=== PATIENT | female | born 1975 | race African-American/Black ===

== ENCOUNTER 2019-06-16 14:15 | Inpatient (IN) | payer MEDICAID ==
[~2019-06-16] VITALS: Ht 172.7 cm; Wt 80.7 kg
--- NOTE | 2019-06-16 18:30 | NUR ---
CALLED Lior BREAUX REGARDING NEW ADMIT PATIENT, RECEIVED NEW ORDERS FOR ADMIT AND MEDICATION ALONG WITH NEW CONSULTS. INFORMED OF PATIENT PENDING COVID STATUS. INFORMED THAT PATIENT STATES SHE WAS NEVER SWABBED AT [facility]. Lior BREAUX STATED TO SWAB PATIENT AGAIN FOR COVID AND KEEP ON DROPLET/AIRBORNE PRECAUTION. WILL FOLLOW THROUGH.
--- NOTE | 2019-06-16 18:45 | NUR ---
SPOKE TO HEAD PAPER TESTER SHERITA STATED "WE CANNOT TEST FOR COVID-19 JUST BECAUSE DOCTOR ORDERED IT". STATED WE MUST FOLLOW THROUGH AND RULE OUT INFLUENZA A&B. Addendum: 06/17/19 at 1011 by Sherita Kesslre RN Correction: Stated to Kurtis DUARTE that at this time we need to follow hospital COVID-19 screening tool. Order for COVID-19 can not be placed at this time until screening completed and recommendation made by director clinical operations screening steam box operator. Advised to proceed with respiratory panel and chest xray. Verbalized understanding.
[2019-06-16 18:55] VITALS: BP 130/82
--- NOTE | 2019-06-16 19:00 | NUR ---
Opening Shift Note Assumed care of patient, awake and alert. No S/S of distress/SOB or pain. Instructed on POC and to call for assist PRN, will continue to monitor for changes Q1hr and PRN.
[2019-06-16] MEDS ORDERED: NITROGLYCERIN 0.4 MG SL TAB SL PRN (19:30)
[2019-06-16] MEDS ORDERED: ACETAMINOPHEN 325 MG TAB PO PRN (19:30)
[2019-06-16] MEDS: SODIUM CHLORIDE 0.9% 1,000 ML IV SCH (19:30)
[2019-06-16] MEDS ORDERED: HYDROcodone-ACET 5/325MG TAB PO PRN (19:30)
[2019-06-16] MEDS ORDERED: ONDANSETRON HCL 4 MG/2 ML VIAL IV PRN (19:30)
[2019-06-16] MEDS ORDERED: MORPHINE SULF INJ 2 MG/ML SYRINGE 1ML IV PRN ×2 (19:30)
--- NOTE | 2019-06-16 19:30 | NUR ---
Dr. Brewer at nursing station. Informed of cardio consult and patient complaining of being very hungry d/t not eating anything all day. Per Patient will not have any procedure done soon until COVID 19 is ruled out. Patient can be on a cardiac diet tonight and can be NPO tomorrow at midnight.
--- NOTE | 2019-06-16 19:40 | NUR ---
Re: COVID-19 Spoke with Dave DUARTE and advised of recommendations per on-call COVID-19 screening nut steamer Mil. Per Mil, continue with respiratory panel and chest xray. Keep patient isolated with COVID-19 precautions. Will follow up in am regarding COVID-[address] Rueda.
--- NOTE | 2019-06-16 19:56 | NUR ---
ENDORSED CARE TO GERALD MCMAHAN INFORMED HIM OF PENDING EKG AND PLACEMENT OF TELE MONITOR AND FLUIDS.
[2019-06-16 20:25] LABS: Basophils # (auto) 0.1 10 ^3/uL (0-0.2); Basophils % (auto) 0.6 % (0.0-2.0); Eosinophils # (auto) 0 10 ^3/uL (0-0.8); Eosinophils % (auto) 0.4 % (0.0-7.0); Hematocrit 40.4 % (36.0-46.0); Hemoglobin 13.7 g/dL (12.2-16.2); Lymphocytes # (auto) 1.3 10 ^3/uL (0.4-5.4); Lymphocytes % (auto) 16.4 % (10.0-50.0); Mean Corpuscular Hemoglobin 29.1 pg (28.0-32.0); Mean Corpuscular Volume 85.6 fL (80.0-100.0); Monocytes # (auto) 0.5 10 ^3/uL (0-1.3); Monocytes % (auto) 6.5 % (0.0-12.0); Neutrophils # (auto) 6.2 10 ^3/uL (1.6-8.6); Neutrophils % (auto) 76.1 % (37.0-80.0); Nucleated Red Blood Cells % 0.1 %; Platelet Count (auto) 230 10^3/uL (140-450); Red Blood Cells 4.71 10^6/uL (4.0-5.20); White Blood Cell 8.1 10^3/uL (4.4-10.8)
[2019-06-16 20:45] LABS: Albumin 2.9 g/dL (3.4-5.0); BUN/Creatinine Ratio 11.5; Calcium 8.6 mg/dL (8.5-10.1); Potassium 3.1 mmol/L (3.5-5.1)
[2019-06-16 20:47] LABS: Total Protein 6.9 g/dL (6.4-8.2)
--- NOTE | 2019-06-16 20:54 | NUR ---
Critical lab: Critical trop of 6. called in from lab. RN paged primary MD to make aware.
--- NOTE | 2019-06-16 21:01 | NUR ---
Coagulating Operator paged per Dr. Rueda.
--- NOTE | 2019-06-16 21:01 | NUR ---
Dr. Rueda returned page and informed RN to call chamber walker.
--- NOTE | 2019-06-16 21:29 | NUR ---
Mohit called RN. RN received call from Dr. Rueda. wants to follow up on patient. RN informed MD that patient is stable with no complaints of chest pain at this time. Vitals are stable. MD made aware of patient's trops again. MD also made aware of patient's EKG reading. Per MD, if patient has any dysrhythmia's, transfer to [facility]. RN will continue to monitor patient.
--- NOTE | 2019-06-16 21:33 | NUR ---
Ground Crew Chief re-paged d/t no call back yet. Patient still stable with no complaints of chest pain.
[2019-06-16] MEDS ORDERED: ENOXAPARIN SOD 80 MG/0.8ML SYRINGE SC SCH (22:00)
[2019-06-16] MEDS: METOPROLOL TARTRATE 25 MG TAB PO SCH (22:00)
[2019-06-16] MEDS: ATORVASTATIN 20 MG TAB PO SCH (22:18)
[2019-06-16] MEDS: FAMOTIDINE 20 MG TAB PO SCH (22:18)
--- NOTE | 2019-06-16 22:54 | NUR ---
Rico returned RN phone call: Per Rico, continue to monitor patients troponin's. Orders also received for Echo, EKG AM and ASA 81mg x 1. Orders verified.
[2019-06-16] MEDS ORDERED: ASPirin 81 mg TAB PO ONE (23:00)
--- NOTE | 2019-06-16 23:15 | NUR ---
RN informed by MT patients tele monitor is not properly reading. RN advised to change leads. RN went into patient's room to change leads. Patient still in no distress or discomfort with no chest pain. Patient resting in bed comfortably.
--- NOTE | 2019-06-17 02:30 | NUR ---
IV accidentally pulled out: Patient accidentally pulled out her IV. IV still fully intact. Patient in no distress or discomfort. Patient refused to have another IV placed at this time. RN provided teaching to patient in regards to importance of IV access but patient still refused at this time. Patient informed RN to place IV at 0530.
[2019-06-17] MEDS: POTASSIUM CHL 20MEQ/100ML 100 ML IV SCH ×2 (04:15→09:07)
--- NOTE | 2019-06-17 04:16 | NUR ---
Dr. Rueda pagethomas: Dr. Mohit funez d/t changes in patient rhythm and low potassium. New orders received and verified.
--- NOTE | 2019-06-17 04:43 | NUR ---
IV insertion IV access obtained, via clean sterile technique by inserting 22 gauge catheter after first attempt. IV secured properly. No trauma to site. Patient tolerated well.
[2019-06-17] MEDS: SODIUM CHLORIDE 0.9% 1,000 ML IV SCH ×2 (05:31→14:31)
--- NOTE | 2019-06-17 06:40 | NUR ---
Patient transferred to [facility] with GERALD Hull.
--- NOTE | 2019-06-17 06:50 | NUR ---
PT IN [facility] TRANSFERRED BY GERALD MCMAHAN. VITAL SIGNS BEFORE TRANSFER BP 124/7, HR 70, RR 18, 97 O2, TEMP 98 AND NO PAIN.
--- NOTE | 2019-06-17 07:46 | NUR ---
PT IS REFUSING PHYSICAL ASSESSMENT.
[2019-06-17 08:00] VITALS: BP 118/68
--- NOTE | 2019-06-17 08:00 | NUR ---
INITIAL ASSESSMENT Patient observed resting in bed in negative pressure room. Denies chest pain or shortness of breath at this time. Afebrile. Patient is awake, alert, and oriented. Patient able to reposition self in bed and ambulate to bathroom without difficulty. Sinus rhythm 70's, RR 14, o2:100% on 2 L nasal cannula. Denies cough or chest tightness. Bowel sounds present. Patient denies nausea or vomiting. Skin intact. Bed locked in lowest position, call light within reach. Will continue to monitor.
--- NOTE | 2019-06-17 08:07 | NUR ---
CARDIOLOGY CONSULT called for update. MD aware of labs, CXR, and patient status. MD wanting to perform LHC today. Patient has been NPO since midnight.
--- NOTE | 2019-06-17 08:16 | NUR ---
MD VISIT: CARDIOLOGY at bedside consenting patient for LHC procedure today. All questions and concerns addressed.
--- NOTE | 2019-06-17 08:20 | NUR ---
MD UPDATE:PCP Spoke with regarding rule out for COVID19. stated that as long as patient does not fit criteria for isolation, then patient may be able to be removed. does not believe patient fits criteria for swabbing. Dr. Jones also agree's that patient does not fit criteria for COVID19 at this time. Patient's temperature is 97.7, this morning 98.5 orally. To fever present since admission. Patient denies shortness of breath or cough. Patient denies ever having cough in the past two weeks. Patient denies any history of travel in or out of the [place] in the last 6 months. Patient denies being in contact with any persons who are sick or have tested positive for COVID19. Patient stated she has been under a lot of stress at home, heart rate was elevated the evening prior to admission, then early that morning around 0100 am, patient stated she experienced chest pain that radiated to her back and continue to remain restless until she called 911. Chest pain has subsided since being admitted.
[2019-06-17] MEDS ORDERED: ASPirin-EC 325mg tab PO ONE (08:30)
[2019-06-17] MEDS ORDERED: fentaNYL CITRATE 100 MCG/2 ML VL ONE (08:50)
[2019-06-17] MEDS ORDERED: ANGIOMAX 250 MG VIAL IV ONE (08:50)
[2019-06-17] MEDS ORDERED: LIDOCAINE 2%HCL (LOCAL ANESTH.) INJ 20ML MDV ONE (08:51)
[2019-06-17] MEDS ORDERED: MIDAZOLAM HCL 1MG/1ML-2 ML VIAL ONE (08:51)
[2019-06-17] MEDS ORDERED: SODIUM CHL 0.9% 50 ML ONE (08:51)
[2019-06-17] MEDS ORDERED: IODIXANOL 320MG/ML 100ML BTL IV ONE (08:51)
[2019-06-17] MEDS ORDERED: VERAPAMIL 2.5MG/ML INJ 2ML VIAL IV ONE (08:53)
--- NOTE | 2019-06-17 09:08 | NUR ---
LAB Sales Assistant [employer] at bedside for STAT PT/PTT/INR.
--- NOTE | 2019-06-17 09:10 | NUR ---
PSYCH SPECIALIST Patient taken to laboratory assistant via bed, monitor and portable oxygen by two laboratory assistant RN's. Consents signed and check off list complete. Patient given ASA 325 mg per order prior to laboratory assistant. All jewelry and personal belongings left at bedside.Patient denies SOB or chest pain. Vitals stable.
[2019-06-17] MEDS ORDERED: diphenhdrAMINE HCL 50 MG/1 ML VL ONE (09:40)
[2019-06-17 09:53] LABS: INR 0.99 (0.9-1.15); Partial Thromboplastin Time 29.1 sec (23.64-32.05)
[2019-06-17] MEDS ORDERED: TICAGRELOR 90 MG TAB ONE (09:55)
[2019-06-17] MEDS ORDERED: ASPirin 81 mg TAB PO SCH (10:00)
[2019-06-17] MEDS: METOPROLOL TARTRATE 25 MG TAB PO SCH ×2 (10:00→21:44)
--- NOTE | 2019-06-17 10:20 | NUR ---
PT IS BACK FROM ADMINISTRATIVE OFFICER PT BACK CAME BAY WITH TWO CATH LABS RN ON THE MONITOR. PT DENIES PAIN, HEMODYNAMICALLY STABLE, PLACED BACK ON MONITOR. RESUMING PT CARE. BED IS LOCKED, LOWEST POSITION. INSTRUCTED PT NOT TO MOVE HER LEFT WRIST AND TO KEEP IT STRAIGHT, NOT PUSH OR PULL USING ARM. PT VERBALIZED UNDERSTANDING. MONITORING LEFT WRIST FOR BLEEDING, PULSES AND CAP REFILL, PT DENIES PAIN AT THE SITE, TINGLING OR FEELING OF NUMBNESS. SKIN COLOR WITHIN NORMAL LIMITS. BOTH HANDS ARE COOL TO TOUCH.
[2019-06-17 10:57] LABS: Basophils # (auto) 0 10 ^3/uL (0-0.2); Basophils % (auto) 0.4 % (0.0-2.0); Eosinophils # (auto) 0.1 10 ^3/uL (0-0.8); Eosinophils % (auto) 0.8 % (0.0-7.0); Hematocrit 39.2 % (36.0-46.0); Hemoglobin 12.9 g/dL (12.2-16.2); Lymphocytes # (auto) 1.4 10 ^3/uL (0.4-5.4); Lymphocytes % (auto) 20.4 % (10.0-50.0); Mean Corpuscular Hemoglobin 28.5 pg (28.0-32.0); Mean Corpuscular Hgb Conc. 32.9 g/dL (32.0-36.0); Mean Corpuscular Volume 86.6 fL (80.0-100.0); Monocytes # (auto) 0.5 10 ^3/uL (0-1.3); Neutrophils # (auto) 4.8 10 ^3/uL (1.6-8.6); Neutrophils % (auto) 70.4 % (37.0-80.0); Nucleated Red Blood Cells % 0.3 %; Platelet Count (auto) 238 10^3/uL (140-450); Red Blood Cells 4.53 10^6/uL (4.0-5.20); White Blood Cell 6.8 10^3/uL (4.4-10.8)
[2019-06-17 10:58] LABS: Red Cell Distribution Width 23.8 % (11.8-14.3)
[2019-06-17 11:01] LABS: Albumin 2.8 g/dL (3.4-5.0); Calcium 8.9 mg/dL (8.5-10.1); Potassium 3.3 mmol/L (3.5-5.1)
[2019-06-17 11:04] LABS: BUN/Creatinine Ratio 9.6; Bilirubin, Total 0.9 mg/dL (0.2-1.0); Total Protein 7.5 g/dL (6.4-8.2)
--- NOTE | 2019-06-17 11:25 | NUR ---
REMOVED 2CC OF AIR FROM VASC BAND NO SIGN OF BLEEDING, PULSE IS PALPABLE, HANDS ARE COOL TO TOUCH BILATERALLY, PT DOES NOT REPORT PAIN, TINGLING OR NUMBNESS AT THE INSERTION SITE.
--- NOTE | 2019-06-17 11:37 | NUR ---
US TECH IS AT BEDSIDE
--- NOTE | 2019-06-17 11:50 | NUR ---
REMOVED ANOTHER 2CC FROM VASC BAND NO SIGN OF BLEEDING OR HEMATOMA. PULSE IS PRESENT, COLOR WNL OF THE SURROUNDING SKIN, BOTH HANDS ARE COOL TO TOUCH. Addendum: 06/17/19 at 1152 by ALO CASTRO RN RN WRONG TIME DOCUMENTED, CORRECT TIME 1149
[2019-06-17 12:00] VITALS: BP 100/63
--- NOTE | 2019-06-17 12:00 | NUR ---
REMOVED ANOTHER 2CC FROM VASC BAND NO SIGN OF BLEEDING OR HEMATOMA. PULSE IS PRESENT, COLOR WNL OF THE SURROUNDING SKIN, BOTH HANDS ARE COOL TO TOUCH.
[2019-06-17] MEDS: FAMOTIDINE 20 MG TAB PO SCH ×2 (12:14→21:43)
--- NOTE | 2019-06-17 13:01 | NUR ---
PT HAD BM PT HAD BOWEL MOVEMENT ON 06/17/19 AT 1300
--- NOTE | 2019-06-17 13:06 | NUR ---
REMOVED VASC BAND NO SIGN OF BLEEDING OR HEMATOMA. PULSE IS PRESENT, COLOR WNL OF THE SURROUNDING SKIN, BOTH HANDS ARE COOL TO TOUCH. APPLIED DRY DRESSING (CELSO [employer] TEGADERM) ACCORDING TO HOSPITAL POLICY.
[2019-06-17] MEDS ORDERED: ATOR20TA50 PO (15:01)
[2019-06-17] MEDS ORDERED: TICA90TA PO (15:01)
[2019-06-17] MEDS ORDERED: ASPI81CH43 PO (15:01)
--- NOTE | 2019-06-17 15:20 | NUR ---
MD TAPIA Spoke with , medication list for D/C obtained. okay with patient being downgraded and discharging home tomorrow. Dr.Moqattash Sierra notified of medication list and orders. Patient home pharmacy obtained.
[2019-06-17 15:22] LABS: Alcohol, Urine < 3.0 mg/dL (0-5); Amphetamine Screen, Urine NEGATIVE (NEGATIVE); Barbiturate Scree,Urine NEGATIVE (NEGATIVE); Benzodiazephine Screen, Urine POSITIVE (NEGATIVE); Cannabinoid Screen, Urine POSITIVE (NEGATIVE); Cocaine Screen, Urine NEGATIVE (NEGATIVE); Opiate Scree,Urine NEGATIVE (NEGATIVE); Phencyclidine Screen, Urine NEGATIVE (NEGATIVE)
--- NOTE | 2019-06-17 15:28 | NUR ---
[facility] after giving SBAR report. Pt transferred on tele box monitor 44. Pt tolerated transfer. Left call light near pt, bed in lowest position. Amauri DUARTE aware that pt is in the room. Pt belongings were sent with patient. Addendum: 06/17/19 at 1623 by Nissa Huynh RN WRONG PT
[2019-06-17 16:00] VITALS: BP 108/77
--- NOTE | 2019-06-17 17:33 | NUR ---
RECEIVED REPORT FROM NICOLLE PITTMAN NURSE.
--- NOTE | 2019-06-17 17:40 | NUR ---
[facility] 293B after giving SBAR report. Pt transferred on tele box monitor 73. Pt tolerated transfer by wheelchair. Left call light near pt, bed in lowest position. Isidra DUARTE aware that pt is in the room. Pt belongings were sent with patient.
--- NOTE | 2019-06-17 18:30 | NUR ---
RECEIVED PATIENT TO THE FLOOR AWAKE ALERT AND ORIENTED. INSTRUCTED PATIENT ON THE PLAN OF CARE AND TO CALL NEEDED.
[2019-06-17] MEDS: TICAGRELOR 90 MG TAB PO SCH (21:43)
[2019-06-17] MEDS: ATORVASTATIN 20 MG TAB PO SCH (21:43)
[2019-06-17 22:00] VITALS: BP 119/79
[2019-06-18] MEDS: SODIUM CHLORIDE 0.9% 1,000 ML IV SCH ×2 (01:17→11:30)
--- NOTE | 2019-06-18 02:01 | NUR ---
received report from Jesse RN. upon entering room pt eyes closed, breathing even and unlabored on room air. no s/s distress noted. bed locked, low and 2x rails up. call light in reach. this nurse to round q1hr and prn.
[2019-06-18 05:00] VITALS: BP 104/85
--- NOTE | 2019-06-18 06:21 | NUR ---
Pt requesting "who do i speak to to leave her Db, this environment is not conducive to healing" referring to room mate needs and subsequent entrance to pt room throughout the night. "alarms going off, people barging in and out". this nurse educated pt the risks associated with leaving AMA, to which she replied "i dont care, i need to go". pt then proceeded to get out of bed, and slammed the door. this nurse will continue to monitor situation.
[2019-06-18 06:56] LABS: Basophils # (auto) 0 10 ^3/uL (0-0.2); Basophils % (auto) 0.5 % (0.0-2.0); Eosinophils # (auto) 0.1 10 ^3/uL (0-0.8); Eosinophils % (auto) 1.1 % (0.0-7.0); Hematocrit 38.1 % (36.0-46.0); Hemoglobin 12.9 g/dL (12.2-16.2); Lymphocytes # (auto) 1.2 10 ^3/uL (0.4-5.4); Lymphocytes % (auto) 19.9 % (10.0-50.0); Mean Corpuscular Hemoglobin 29.4 pg (28.0-32.0); Mean Corpuscular Hgb Conc. 33.9 g/dL (32.0-36.0); Mean Corpuscular Volume 86.7 fL (80.0-100.0); Monocytes # (auto) 0.6 10 ^3/uL (0-1.3); Monocytes % (auto) 8.9 % (0.0-12.0); Neutrophils # (auto) 4.3 10 ^3/uL (1.6-8.6); Neutrophils % (auto) 69.6 % (37.0-80.0); Platelet Count (auto) 214 10^3/uL (140-450); Red Blood Cells 4.39 10^6/uL (4.0-5.20); White Blood Cell 6.2 10^3/uL (4.4-10.8)
[2019-06-18 07:06] LABS: Red Cell Distribution Width 23.7 % (11.8-14.3)
[2019-06-18 07:15] LABS: Albumin 2.7 g/dL (3.4-5.0); Calcium 8.8 mg/dL (8.5-10.1); Potassium 3.7 mmol/L (3.5-5.1)
[2019-06-18 07:20] LABS: BUN/Creatinine Ratio 6.2; Bilirubin, Total 0.9 mg/dL (0.2-1.0); Total Protein 6.9 g/dL (6.4-8.2)
[2019-06-18 09:00] VITALS: BP 104/64
[2019-06-18] MEDS: METOPROLOL TARTRATE 25 MG TAB PO SCH (10:00)
[2019-06-18] MEDS ORDERED: ASPirin 81 mg TAB PO SCH (10:00)
[2019-06-18] MEDS: FAMOTIDINE 20 MG TAB PO SCH (10:40)
[2019-06-18] MEDS: TICAGRELOR 90 MG TAB PO SCH (10:44)
[2019-06-18 14:57] VITALS: BP 104/64
--- NOTE | 2019-06-18 15:43 | NUR ---
Discharge instructions given as ordered. Encourage to follow up with PMD as instructed. All questions and concerns addressed. Patient verbalized understanding. Medication reconciliation form completed and copy given to patient. IV removed with catheter intact, pressure dressing applied . Telemetry unit returned to ICU. Patient taken to vehicle via wheelchair with all personal belongings, accompanied by staff member. No distress noted at time of departure.
== END 2019-06-18 16:00 | disposition home or self-care (01) | DRG 174 ==
LOC: EAST 18:53 → TELE-EAST 19:23 → DOU IN ICU 06-17 06:40 → TELE-WESTW 06-17 17:52
PROVIDERS: ADMIT Internal Medicine; ATTEND Internal Medicine
PROC: 027135Z Dilation of Coronary Artery, Two Arteries with Two Drug-eluting Intraluminal Devices, Percutaneous Approach (ICD-10-PCS; principal; 2019-06-17)
PROC: B211YZZ Fluoroscopy of Multiple Coronary Arteries using Other Contrast (ICD-10-PCS; 2019-06-17)
DX: I21.4 Non-ST elevation (NSTEMI) myocardial infarction (principal); F12.90 Cannabis use, unspecified, uncomplicated; I10 Essential (primary) hypertension; F17.210 Nicotine dependence, cigarettes, uncomplicated; I34.0 Nonrheumatic mitral (valve) insufficiency; Z79.899 Other long term (current) drug therapy
CPT/HCPCS: 36415; 71045; 80053; 80307; 80320; 84484; 85025; 85610; 85730; 87081; 87804; 92928; 93306; 93454; 99152; 99153; C1874; G0378; J2250; J3480; Q9967

== ENCOUNTER 2020-10-27 12:31 | Emergency (ER) | payer MEDICAID ==
[~2020-10-27] VITALS: Ht 170.2 cm; Wt 72.6 kg
[~2020-10-27 12:31] MED LIST: ASPI81CH43 PO; ATOR20TA50 PO; TICA90TA PO
[2020-10-27] MEDS ORDERED: SODIUM CHLORIDE 0.9% 1,000 ML IV ONE (13:00)
[2020-10-27 13:04] LABS: Basophils # (auto) 0.1 10 ^3/uL (0-0.2); Basophils % (auto) 0.4 % (0.0-2.0); Eosinophils # (auto) 0 10 ^3/uL (0-0.8); Eosinophils % (auto) 0.2 % (0.0-7.0); Lymphocytes # (auto) 1.2 10 ^3/uL (0.4-5.4); White Blood Cell 17.4 10^3/uL (4.4-10.8)
[2020-10-27 13:11] LABS: Hematocrit 36.1 % (36.0-46.0); Hemoglobin 12.3 g/dL (12.2-16.2); Lymphocytes % (auto) 6.8 % (10.0-50.0); Mean Corpuscular Hgb Conc. 33.9 g/dL (32.0-36.0); Mean Corpuscular Volume 82.6 fL (80.0-100.0); Monocytes # (auto) 0.5 10 ^3/uL (0-1.3); Monocytes % (auto) 2.7 % (0.0-12.0); Neutrophils # (auto) 15.6 10 ^3/uL (1.6-8.6); Neutrophils % (auto) 89.9 % (37.0-80.0); Nucleated Red Blood Cells % 0.2 %; Red Blood Cells 4.38 10^6/uL (4.0-5.20); Red Cell Distribution Width 18.7 % (11.8-14.3)
[2020-10-27 13:19] LABS: Alanine Aminotransferase 14 U/L (13-56); Anion Gap 7 (5-15); Blood Urea Nitrogen 2 mg/dL (7-18); Calcium 8.5 mg/dL (8.5-10.1); Carbon Dioxide 28 mmol/L (21-32); Chloride 100 mmol/L (98-107); Glucose 88 mg/dL (74-106); Magnesium 1.9 mg/dL (1.6-2.6); Potassium 3.2 mmol/L (3.5-5.1); Sodium 135 mmol/L (136-145)
[2020-10-27 13:24] LABS: Alkaline Phosphatase 191 U/L (45-117); Aspartate Aminotransferase 20 U/L (15-37); BUN/Creatinine Ratio 2.6; Bilirubin, Total 0.6 mg/dL (0.2-1.0); GFR African American 107 mL/min; GFR Non-African American 88 mL/min; Total Protein 7.9 g/dL (6.4-8.2)
[2020-10-27 13:27] LABS: Urine Bacteria FEW /hpf (None Seen); Urine Blood Negative /uL (Negative); Urine Specific Gravity 1.006 (1.001-1.035); Urine WBC 2 /hpf (0 - 5)
[2020-10-27 13:53] LABS: Alcohol, Urine < 3.0 mg/dL (0-10); Amphetamine Screen, Urine NEGATIVE (NEGATIVE); Barbiturate Scree,Urine NEGATIVE (NEGATIVE); Benzodiazephine Screen, Urine NEGATIVE (NEGATIVE); Cannabinoid Screen, Urine POSITIVE (NEGATIVE); Cocaine Screen, Urine NEGATIVE (NEGATIVE); Opiate Scree,Urine NEGATIVE (NEGATIVE); Phencyclidine Screen, Urine NEGATIVE (NEGATIVE)
[2020-10-27] MEDS ORDERED: IOHEXOL 350 MG/ML 100ML IJ ONE (15:33)
[2020-10-27 17:00] VITALS: BP 109/83
[2020-10-27] MEDS ORDERED: KETOROLAC TROMETH 30 MG/ML 1ML VIAL IV ONE (17:00)
[2020-10-27] MEDS ORDERED: METOCLOPRAMIDE HCL 5MG/ml INJ 2ml VIAL IV ONE (17:00)
[2020-10-27] MEDS ORDERED: POTASSIUM EFFERVESENT TAB 25 MEQ PO ONE (17:45)
== END 2020-10-27 18:04 | disposition home or self-care (01) ==
LOC: EDBD 12:31 → ER 12:31
DX: I47.1 Supraventricular tachycardia (principal); I25.10 Atherosclerotic heart disease of native coronary artery without angina pectoris; F12.10 Cannabis abuse, uncomplicated; E87.6 Hypokalemia; E43 Unspecified severe protein-calorie malnutrition; Z68.25 Body mass index [BMI] 25.0-25.9, adult; E78.5 Hyperlipidemia, unspecified; F17.210 Nicotine dependence, cigarettes, uncomplicated; Z79.82 Long term (current) use of aspirin; Z79.899 Other long term (current) drug therapy
CPT/HCPCS: 36415; 71045; 71275; 80053; 80307; 81001; 83735; 84443; 84484; 84702; 85025; 85379; 93005; 96361; 96374; 96375; 99285; J1885; J2765; J7030; Q9967

== ENCOUNTER 2025-03-20 12:35 | Inpatient (IN) | payer MEDICAID ==
[~2025-03-20] VITALS: Ht 172.7 cm; Wt 73.2 kg
--- NOTE | 2025-03-20 12:55 | ED.PDOC ---
Back pain HPI HPI Comments 49 y.o female with PMHx of CT, possible bladder cancer, and seizures, presents to the ED via EMS for a chief complaint of total body cramping x 3 days associated with nausea and vomiting x 1 day. Patient reports cramping is severe, states worse to the abdomen site and is accompanied by cold sweats today. Patient denies any fever, diarrhea, constipation, recent contact exposure, SOB or chest pain. EMS reports patient was orthostatic positive on scene and is back to normotensive upon ED arrival. Time Seen by MD: 12:44 Reviewed Notes: Nurses Notes, Physical Therapy Aide Notes, Medications, Allergies Allergies: Coded Allergies: NO KNOWN ALLERGIES (Unverified , 06/16/19) Home Meds Active Scripts Ticagrelor Base (BRILINTA) 90 Mg Tab, 90 MG PO BID, #60 TAB Prov:MARINA PORTER MD 06/17/19 Atorvastatin Calcium (ATORVASTATIN CALCIUM) 20 Mg Tab, 40 MG PO HS, #30 TAB Prov:MARINA PORTER MD 06/17/19 Aspirin (Asa) 81 Mg Ch, 81 MG PO DAILY, #30 TAB.CHEW Prov:MARINA PORTER MD 06/17/19 Information Source: Patient, Emergency Med Personnel Mode of Arrival: EMS Timing: Days (3) Duration: Since onset Severity: Moderate Quality: Sharp Onset: Spontaneous Circumstance: Other History of: None Modifying Factors: Nothing Associated signs and symptoms: Abdominal Pain Past Medical History PAST MEDICAL HISTORY: Cancer, Liver, Seizures Surgical History: PTCA GERIATRIC PHYSICIAN History: No Pertinent GERIATRIC PHYSICIAN History Family History Family History: Family hx of DM Social History Smoker: Cigarettes Alcohol: Denies ETOH Use Drugs: Denies Drug Use Lives In: Home Constitutional: reports: sweats; denies: chills, diaphoresis, fatigue, fever, malaise, weakness, others EENTM: denies: blurred vision, double vision, ear bleeding, ear discharge, ear drainage, ear pain, ear ringing, eye pain, eye redness, hearing loss, mouth pain, mouth swelling, nasal discharge, nose bleeding, nose congestion, nose pain, photophobia, tearing, throat pain, throat swelling, voice changes, others Respiratory: denies: cough, hemoptysis, orthopnea, SOB at rest, shortness of breath, SOB with excertion, stridor, wheezing, others Cardiovascular: denies: chest pain, dizzy spells, diaphoresis, Dyspnea on exertion, edema, irregular heart beat, left arm pain, lightheadedness, palpitations, PND, syncope, others Gastrointestinal: reports: abdominal pain, nausea, vomiting; denies: abdomen distended, blood streaked bowels, constipated, diarrhea, dysphagia, difficulty swallowing, hematemesis, melena, poor appetite, poor fluid intake, rectal ble eding, rectal pain, others Genitourinary: denies: abnormal vagina bleeding, burning, dyspareunia, dysuria, flank pain, frequency, hematuria, incontinence, pain, , vagina discharge, urgency, others Neurological: denies: dizziness, fainting, headache, left sided numbness, left sided weakness, numbness, paresthesia, pre-existing deficit, right sided numbness, right sided weakness, seizure, speech problems, tingling, tremors, weakness, others Musculoskeletal: reports: muscle pain; denies: back pain, gout, joint pain, joint swelling, muscle stiffness, neck pain, others Integumetry: denies: bruises, change in color, change in hair/nails, dryness, laceration, lesions, lumps, rash, wounds, others Allergic/Immunocompromised: denies: Difficulty Healing, Frequent Infections, Hives, Itching, others Hematologic/Lymphatic: denies: anemia, blood clots, easy bleeding, easy bruising, swollen glands, others Endocrine: denies: excessive hunger, excessive sweating, excessive thirst, excessive urination, flushing, intolerance to cold, intolerance to heat, unexplained weight gain, unexplained weight loss, others Psychiatric: denies: anxiety, bipolar disorder, depression, hopeless, panic disorder, schizophrenia, sleepless, suicidal, others All Other Systems: Reviewed and Negative Physical Exam General Appearance: Moderate Distress HEENT: Normal ENT Inspection, Pharynx Normal, TMs Normal Neck: Full Range of Motion, Non-Tender, Normal, Normal Inspection Respiratory: Chest Non-Tender, Lungs Clear, No Accessory Muscle Use, No Respiratory Distress, Normal Breath Sounds Cardiovascular: No Edema, No JVD, No Murmur, No Gallop, Normal Peripheral Pulses, Tachycardia Breast Exam: Deferred Gastrointestinal: No Organomegaly, Non Tender, No Pulsatile Mass, Normal Bowel Sounds, Soft Genitalia: Deferred Pelvic: Deferred Rectal: Deferred Extremities: No calf tenderness, Normal capillary refill, Normal inspection, Normal range of motion, Non-tender, No pedal edema Musculoskeletal : Apperance: Normal Neurologic: Alert, blow moulding machine operator II-XII nml as Tested, No Motor Deficits, Normal Affect, Normal Mood, No Sensory Deficits Cerebellar Function: NOT DONE Reflexes: NOT DONE Skin: Normal Color Peripheral Pulses: 3+ Radial (R), 3+ Radial (L) Lymphatic: No Adenopathy Was a procedure done? Was a procedure done?: No Back Pain Differential Dx Differential Diagnosis: Cholelithiasis, Cholangitis, DJD, Musculoskeletal Pain, Pancreatits, Strain X-Ray, Labs, Meds, VS Vital Signs Date Time Temp Pulse Resp B/P (MAP) Pulse Ox O2 Delivery O2 Flow Rate FiO2 03/20/25 12:54 99.0 133 18 126/72 94 99.0 Patient alert. Complaining of abdominal pain. She also has cough. Answering questions. Mild fever. Tachycardia. Saturation on the low side. EKG reviewed does show sinus tachycardia. No leg swelling. Continue monitoring. Time of 1ST Reevaluation: 12:52 Reevaluation 1ST: Unchanged Patient Education/Counseling: Diagnosis, Treatment, Prognosis Family Education/Counseling: No Family Present SEPSIS Sepsis Screen Physician Orders Complete Blood Count (03/20/25 12:55) Urinalysis (03/20/25 12:55) Ct Ab Pel Wo Con-No Oral Or Iv (03/20/25 12:55) Chest Portable (03/20/25 12:55) Basic Metabolic Panel (03/20/25 12:55) Vital Signs Date Time Temp Pulse Resp B/P (MAP) Pulse Ox O2 Delivery O2 Flow Rate FiO2 03/20/25 12:54 99.0 133 18 126/72 94 99.0 Departure 1 Departure Time of Disposition: 13:16 Impression: Primary Impression: Acute abdominal pain Disposition: 09 ADMITTED INPATIENT Admit to: Med Surg Condition: Guarded Critical Care Note Critical Care Time?: Yes (90 min-critical care time only) Stability Stability form required: No I personally scribed for GELY DE LA CRUZ MD ([email or web address]) on 03/20/25 at 12:55. Electronically submitted by Alissa De La Torre ([facility]). I personally scribed for GELY DE LA CRUZ MD ([email or web address]) on 03/20/25 at 12:56. Electronically submitted by Alissa De La Torre ([facility]). GELY DE LA CRUZ MD Mar 20, 2025 12:55
[2025-03-20 13:10] VITALS: PULSE 140; RESP 16; O2SAT 96
[2025-03-20] MEDS: SODIUM CHLORIDE 0.9% 1,000 ML IV ONE ×2 (13:30→14:59)
--- NOTE | 2025-03-20 13:46 | DVH ---
CT abdomen and pelvis without contrast INDICATION: diffusepain TECHNIQUE: Serial axial images were performed through the abdomen and pelvis and then reformatted in the sagittal and coronal plane. All CT scans at this medical facility are performed using dose modulation techniques as appropriate to a performed exam including the following: Automated exposure control was utilized; adjustment of the MA and/or KvP according to patient size; and use of iterative reconstruction technique. FINDINGS: Liver and spleen are normal in size without focal mass. No renal masses, stones or hydronephrosis. No masses or enlargement of the adrenal glands or pancreas. No biliary dilatation. No gallstones. No distention of bowel loops to suggest mechanical obstruction of bowel. The appendix is normal in appearance. No free fluid. Within the pelvis, bladder is smooth walled without stones. Calcified fibroids within the uterus. IMPRESSION: Study limited by lack of IV and oral contrast No definite acute pathology is seen. Incidental note made of multiple calcified uterine fibroids Computed Tomographic Radiation Dosimetry Report: Total CTDI vol = 7.7mGy Total DLP = 386.3mGy-cm Low dose protocols were performed.
--- NOTE | 2025-03-20 13:57 | DVH ---
CHEST RADIOGRAPH INDICATION: cough TECHNIQUE: Single frontal view of the chest was obtained COMPARISON: CT ANGIO CHEST CONTRAST on DOS: 10/27/20, CHEST PORTABLE on DOS: 10/27/20 FINDINGS: Lines and Tubes: None Lungs: Clear Pleura: No effusion. No pneumothorax. Cardiomediastinal contours: Unremarkable Bones: Unremarkable IMPRESSION: 1. No acute disease.
[2025-03-20 14:08] LABS: Hematocrit 35.8 % (36.0-46.0); Hemoglobin 12.2 g/dL (12.2-16.2); Mean Corpuscular Hemoglobin 29.4 pg (28.0-32.0); Mean Corpuscular Volume 86.3 fL (80.0-100.0); Nucleated Red Blood Cells % 0.0 %
[2025-03-20 14:15] LABS: Potassium 3.5 mmol/L (3.5-5.1)
[2025-03-20 14:16] LABS: Anion Gap 12 (5-15); Carbon Dioxide 20 mmol/L (20-31)
[2025-03-20 14:17] LABS: Calcium 9.2 mg/dL (8.7-10.4); Chloride 94 mmol/L (98-107); Sodium 126 mmol/L (136-145)
[2025-03-20 14:22] LABS: BUN/Creatinine Ratio 13.3 (10.0-20.0); Blood Urea Nitrogen 11 mg/dL (9-23)
[2025-03-20 14:25] LABS: Glucose 128 mg/dL (74-106)
[2025-03-20] MEDS ORDERED: ACETAMINOPHEN 325 MG TAB PO PRN (16:45)
[2025-03-20] MEDS ORDERED: ONDANSETRON HCL 4 MG/2 ML VIAL IV PRN ×2 (16:45)
--- NOTE | 2025-03-20 16:47 | DVHHP2 ---
History of Present Illness History of Present Illness 49 y.o female with PMHx of [place], possible bladder cancer, and seizures, presents to the ED via EMS for a chief complaint of total body cramping x 3 days associated with nausea and vomiting x 1 day. Patient reports cramping is severe, states worse to the abdomen site and is accompanied by cold sweats today. No sick contacts. No fevers chills. Patient denies any fever, diarrhea, constipation, recent contact exposure, SOB or chest pain. EMS reports patient was orthostatic positive on scene and is back to normotensive upon ED arrival. Review of Systems Review of Systems See HPI Allergies: Coded Allergies: NO KNOWN ALLERGIES (Unverified , 06/16/19) Exam Vital Signs Vital Signs Date Time Temp Pulse Resp B/P (MAP) Pulse Ox O2 Delivery O2 Flow Rate FiO2 03/20/25 13:10 140 16 96 Room Air* 0 21 03/20/25 12:54 99.0 126/72 99.0 Exam GEN: Healthy appearing, well-developed, NAD. HEENT: NC/AT; dry mucous membranes CV: RRR, no m/r/g. LUNGS: CTAB, no w/r/c. ABD: Epigastrium tender to palpation EXT: skin Warm, well perfused. no rashes. No clubbing, cyanosis, or edema. NEURO: Ambulating with no limitations. No focal deficits. Labs/Xrays Labs Test 03/20/25 13:38 Range/Units White Blood Count 14.7 H 4.4-10.8 10^3/uL Red Blood Count 4.14 4.0-5.20 10^6/uL Hemoglobin 12.2 12.2-16.2 g/dL Hematocrit 35.8 L 36.0-46.0 % Mean Corpuscular Volume 86.3 80.0-100.0 fL Mean Corpuscular Hemoglobin 29.4 28.0-32.0 pg Mean Corpuscular Hemoglobin Concent 34.0 32.0-36.0 g/dL Red Cell Distribution Width 15.8 H 11.8-14.3 % Platelet Count 210 140-450 10^3/uL Mean Platelet Volume 9.4 6.9-10.8 fL Neutrophils (%) (Auto) 94.7 H 37.0-80.0 % Lymphocytes (%) (Auto) 1.6 L 10.0-50.0 % Monocytes (%) (Auto) 3.4 0.0-12.0 % Eosinophils (%) (Auto) 0.0 0.0-7.0 % Basophils (%) (Auto) 0.3 0.0-2.0 % Neutrophils # (Auto) 13.9 H 1.6-8.6 10 ^3/uL Lymphocytes # (Auto) 0.2 L 0.4-5.4 10 ^3/uL Monocytes # (Auto) 0.5 0-1.3 10 ^3/uL Eosinophils # (Auto) 0 0-0.8 10 ^3/uL Basophils # (Auto) 0 0-0.2 10 ^3/uL Nucleated Red Blood Cells 0.0 % Sodium Level 126 L 136-145 mmol/L Potassium Level 3.5 3.5-5.1 mmol/L Chloride Level 94 L 98-107 mmol/L Carbon Dioxide Level 20 20-31 mmol/L Anion Gap 12 5-15 Blood Urea Nitrogen 11 9-23 mg/dL Creatinine 0.83 0.550-1.02 mg/dL Glomerular Filtration Rate Calc 87 >90 mL/min BUN/Creatinine Ratio 13.3 10.0-20.0 Serum Glucose 128 H 74-106 mg/dL Lactic Acid Level 1.7 0.4-2.0 mmol/L Calcium Level 9.2 8.7-10.4 mg/dL SEPSIS Sepsis Screen Date sepsis recognized/suspect: Mar 20, 2025 Time Sepsis recognized/suspect: 1310 Recent Procedure: No On Antibiotic Therapy: No Respiratory Rate >20: No Heart Rate >90: Yes Temp<36 C (96.8 F) or >38.3 C: No SBP <90 or MAP <65 mmHG: No New Acute Mental Status Change: No Is the patient on CPAP, BIPAP,: No Physician Orders Urinalysis (03/20/25 12:55) Ct Ab Pel Wo Con-No Oral Or Iv (03/20/25 12:55) Chest Portable (03/20/25 12:55) Blood Culture (03/20/25 13:17) Sodium Chloride 0.9% (03/20/25 13:30) Vital Signs Date Time Temp Pulse Resp B/P (MAP) Pulse Ox O2 Delivery O2 Flow Rate FiO2 03/20/25 13:10 140 16 96 Room Air* 0 21 03/20/25 12:54 99.0 133 18 126/72 94 99.0 Laboratory Tests Test 03/20/25 13:38 Lactic Acid Level 1.7 mmol/L (0.4-2.0) White Blood Count 14.7 10^3/uL (4.4-10.8) H Medications Medications Dose Ordered Sig/Riley Route Start Time Stop Time Status Last Admin Dose Admin Ceftriaxone Sodium 50 ml @ 100 mls/hr ONCE ONCE IV 03/20/25 13:30 03/20/25 13:59 DC 03/20/25 15:13 100 MLS/HR Metronidazole 100 ml @ 100 mls/hr ONCE ONCE IV 03/20/25 13:30 03/20/25 14:29 DC 03/20/25 15:58 100 MLS/HR Sodium Chloride 1,000 ml @ 150 mls/hr Q6H40M ONCE IV 03/20/25 13:30 03/20/25 20:09 03/20/25 13:30 150 MLS/HR Sodium Chloride 1,000 ml @ 1,000 mls/hr Q1H ONCE IV 03/20/25 13:30 03/20/25 14:29 DC 03/20/25 14:59 1,000 MLS/HR Assessment/Plan Assessment/Plan 03/20: Patient presented for total body cramps after 1 day of severe nausea and vomiting. She has cold sweats, denies fevers. She also has hyponatremia , likely hypovolemic. given bolus and ctx/flagyl in ER. we will continue this for admission. will need maintenance fluids. Diagnosis: Gastroenteritis, infectious etiology likely Hyponatremia, hypovolemic hypoosmolar likely CKD likely HFpEF possible Bladder cancer current, ongoing workup/treatment History of NH History of seizures? Plan: IV antibiotics Maintenance was Continue home medications Oxygen SpO2 goal more than 90 Prn pain meds Full liquid diet, advance as tolerated Prn Zofran for antiemetic Med surge Full code Plan discussed with: Patient Date of Service: Mar 20, 2025 Billing Provider: PAUL LAIRD MD Common Visit Codes: [id number] INP/OBS CARE (HIGH) Secondary Visit Codes: [id number] CARE PLAN 30 MINUTES PAUL LAIRD MD Mar 20, 2025 16:47
[2025-03-20] MEDS: SODIUM CHLORIDE 0.9% 1,000 ML IV SCH (17:00)
[2025-03-20 19:55] LABS: Urine Protein, UAD 2+ (Negative)
[2025-03-20] MEDS: MORPHINE SULFATE 4 MG/ML SYR/VIAL IV PRN (21:51)
[2025-03-20 22:10] VITALS: BP 125/75; PULSE 126; RESP 19; TEMP 98.4; O2SAT 95
[2025-03-20 22:53] VITALS: BP 125/75; PULSE 126; PULSE 95; RESP 18; TEMP 98.4; O2SAT 95; O2SAT 97
[2025-03-20] MEDS: HYDROcodone-ACET 5/325MG TAB PO PRN (23:36)
[2025-03-21] VITALS (9 sets, daily range): BP systolic 96–159; BP diastolic 59–110; PULSE 87–131; RESP 16–19; TEMP 97–99; O2SAT 93–98
[2025-03-21] MEDS: dilTIAZem 120MG ER CAP PO ONE ×2 (03:27→04:41)
[2025-03-21 08:00] LABS: Hematocrit 32.2 % (36.0-46.0); Hemoglobin 10.8 g/dL (12.2-16.2); Mean Corpuscular Hemoglobin 29.2 pg (28.0-32.0); Mean Corpuscular Volume 86.7 fL (80.0-100.0); Nucleated Red Blood Cells % 0.0 %
[2025-03-21 08:18] LABS: Albumin 3.8 g/dL (3.2-4.8); Anion Gap 9 (5-15); BUN/Creatinine Ratio 11.8 (10.0-20.0); Bilirubin, Total 1.1 mg/dL (0.2-1.0); Calcium 8.7 mg/dL (8.7-10.4); Carbon Dioxide 26 mmol/L (20-31); Glucose 102 mg/dL (74-106); Potassium 3.7 mmol/L (3.5-5.1); Total Protein 7.1 g/dL (5.7-8.2)
[2025-03-21] MEDS ORDERED: DILT-29 PO (08:20)
[2025-03-21 08:30] LABS: Alanine Aminotransferase 55 U/L (7-40); Alkaline Phosphatase 169 U/L (46-116); Blood Urea Nitrogen 9 mg/dL (9-23); Chloride 94 mmol/L (98-107); Sodium 129 mmol/L (136-145)
[2025-03-21] MEDS: ENOXAPARIN SOD 40 MG/0.4 ML SYRINGE SC SCH (08:40)
[2025-03-21] MEDS ORDERED: ADENOSINE 6 MG/2 ML INJ IV STA ×2 (10:46)
[2025-03-21] MEDS: LACTATED RINGER'S 1,000 ML IV ONE (11:00)
--- NOTE | 2025-03-21 11:24 | DVHPN2 ---
Reviewed: H&P Changes from previous H/P or p: No Changes General: Per HPI Objective Vitals Vital Signs Date Time Temp Pulse Resp B/P (MAP) Pulse Ox O2 Delivery O2 Flow Rate FiO2 03/21/25 08:58 98.2 131 18 159/110 (126) 93 98.2 03/21/25 07:59 Room Air* 0 21 Intake/Output Intake and Output 03/21/25 07:00 Intake Total 930 ml Balance 930 ml Intake Oral 300 ml IV Total 630 ml # Voids 5 Exam GEN: Healthy appearing, well-developed, NAD. HEENT: NC/AT; MMM. CV: RRR, no m/r/g. LUNGS: CTAB, no w/r/c. ABD: Soft, NT/ND, NBS, no masses or organomegaly. EXT: skin Warm, well perfused. no rashes. No clubbing, cyanosis, or edema. NEURO: Ambulating with no limitations. No focal deficits. Medications Current Medications Medications Dose Ordered Sig/Riley Route Start Time Stop Time Status Last Admin Dose Admin Sodium Chloride 1,000 ml @ 60 mls/hr [id number] IV 03/20/25 16:45 03/21/25 08:40 60 MLS/HR Acetaminophen/ Hydrocodone Bitart 1 tab Q4HP PRN PO 03/20/25 16:45 03/20/25 23:36 1 TAB Ondansetron HCl 4 mg Q4HP PRN IV 03/20/25 16:45 Enoxaparin Sodium 40 mg DAILY SC 03/21/25 10:00 03/21/25 08:40 40 MG Acetaminophen 650 mg Q6HP PRN PO 03/20/25 16:45 Morphine Sulfate 2 mg Q4HPRN PRN IV 03/20/25 17:00 03/21/25 08:41 2 MG Ceftriaxone Sodium 50 ml @ 100 mls/hr DAILY@09 IV 03/21/25 09:00 03/21/25 08:39 100 MLS/HR Metronidazole 100 ml @ 100 mls/hr Q8HR IV 03/20/25 22:00 03/21/25 05:48 100 MLS/HR Metoprolol Tartrate 25 mg BID PO 03/21/25 22:00 Diltiazem HCl 120 mg DAILY PO 03/22/25 10:00 UNV Laboratory Results Laboratory Tests 03/21/25 07:50 Chemistry Test 03/20/25 13:38 03/21/25 07:50 Calcium Level 9.2 mg/dL (8.7-10.4) 8.7 mg/dL (8.7-10.4) Albumin 3.8 g/dL (3.2-4.8) Magnesium Level Pending Phosphorus Level Pending Total Protein 7.1 g/dL (5.7-8.2) LFT Test 03/21/25 07:50 Alanine Aminotransferase (ALT) 55 U/L (7-40) H Alkaline Phosphatase 169 U/L (46-116) H Aspartate Amino Transferase (AST) 141 U/L (13-40) H Total Bilirubin 1.1 mg/dL (0.2-1.0) H Urinalysis Test 03/20/25 18:55 Urine Color Yellow (Yellow) Urine Clarity Clear (Clear) Urine pH 6.0 (5.0-9.0) Urine Specific [place] 1.014 (1.001-1.035) Urine Protein 2+ (Negative) H Urine Ketones Trace (Negative) Urine Blood 1+ /uL (Negative) H Urine Nitrite Negative (Negative) Urine Bilirubin Negative (Negative) Urine Urobilinogen 3 mg/dL (Negative) H Urine Leukocyte Esterase Negative /uL (Negative) Urine RBC 1 /hpf (0 - 4) Urine Microscopic WBC 2 /HPF (0-5) Urine Squamous Epithelial Cells Few /hpf (<5) Urine Bacteria Few /hpf (None Seen) H Urine Mucus Few (None Seen) Urine Glucose Normal mg/dL (Normal) Microbiology Microbiology Date/Time Source Procedure Growth Status 03/20/25 13:38 Blood Blood Culture - Preliminary Resulted Labs and/or images reviewed: Labs reviewed by me, Image(s) reviewed by me Assessment/Plan Assessment/Plan 49 y.o female with PMHx of [place], possible bladder cancer, and seizures, presents to the ED via EMS for a chief complaint of total body cramping x 3 days associated with nausea and vomiting x 1 day. Patient reports cramping is severe, states worse to the abdomen site and is accompanied by cold sweats today. No sick contacts. No fevers chills. Patient denies any fever, diarrhea, constipation, recent contact exposure, SOB or chest pain. EMS reports patient was orthostatic positive on scene and is back to normotensive upon ED arrival. 03/20: Patient presented for total body cramps after 1 day of severe nausea and vomiting. She has cold sweats, denies fevers. She also has hyponatremia , likely hypovolemic. given bolus and ctx/flagyl in ER. we will continue this for admission. will need maintenance fluids. 03/21: Had SVT overnight was given diltiazem ER 122 I's, her home doses diltiazem ER 120 once daily. She has gotten to SVT again this morning. She can versus herself to sinus tachycardia 100s. Giving LR 500 bolus, Gram-positive cause of cocci on blood blood culture, we will be blood cultures keep antibiotics ceftriaxone Flagyl. We will get triana labs CMP, lactic, Mag phos, troponin, CK,. Keeping crash guarded at bedside, and cardiology consult, continue daily diltiazem ER 120 mg daily, giving adenosine at bedside,. Diagnosis: Gastroenteritis, infectious etiology likely Hyponatremia, hypovolemic hypoosmolar likely History SVT CKD likely HFpEF possible Bladder cancer current, ongoing workup/treatment History of [place] History of seizures? Plan: IV antibiotics Maintenance was Continue home medications Oxygen SpO2 goal more than 90 Prn pain meds Full liquid diet, advance as tolerated Prn Zofran for antiemetic Med surge Full code Plan discussed with: Patient My Orders Orders - PAUL LAIRD MD Procedure Category Date Status Time Admit ADMIT 03/20/25 Transmitted 16:43 Code Status CODE 03/20/25 Transmitted 16:43 Full Liq Diet DIET 03/20/25 Transmitted Dinner Sodium Chloride 0.9% PHA 03/20/25 In Process 16:45 Hydrocodone-Acet PHA 03/20/25 In Process 5/325mg Tab ([place] 16:45 Ondansetron Hcl PHA 03/20/25 In Process (Zofran) 16:45 Enoxaparin Sodium PHA 03/21/25 In Process (Lovenox) 10:00 Acetaminophen Tablet PHA 03/20/25 In Process (Tylenol Tablet) 16:45 Ceftriaxone 1gm/50ml PHA 03/21/25 In Process (Rocephin) 09:00 Metronidazole PHA 03/20/25 In Process 500mg/100ml (Flagyl 22:00 Morphine Sulfate PHA 03/20/25 In Process Injection 17:00 Magnesium LAB 03/21/25 In Process 10:56 Phosphorus LAB 03/21/25 In Process 10:56 Comprehensive LAB 03/21/25 Logged Metabolic Panel 14:00 Blood Culture DAMIAN 03/21/25 Logged 14:00 Lactated Ringer's PHA 03/21/25 In Process 11:00 Lactic Acid W/ Reflex LAB 03/21/25 Logged Order 14:00 Creatine Kinase Ckmb LAB 03/21/25 Logged 14:00 * Cardiology Consult CONS 03/21/25 Transmitted 11:10 Chest Xray 1 View XY 03/21/25 Taken 11:10 Metoprolol Tartrate PHA 03/21/25 In Process Tablet (Lopressor Ta 22:00 Date of Service: Mar 21, 2025 Billing Provider: PAUL LAIRD MD Common Visit Codes: [id number] INP/OBS CARE(HIGH) PAUL LAIRD MD Mar 21, 2025 11:24
[2025-03-21 11:40] LABS: Magnesium 1.6 mg/dL (1.6-2.6)
--- NOTE | 2025-03-21 12:03 | DVH ---
EXAM: XY CHEST XRAY 1 VIEW CLINICAL HISTORY: sob TECHNIQUE: Single AP view of the chest WID: COMPARISON: XY CHEST PORTABLE on DOS: 03/20/25 FINDINGS: Lines and tubes: A defibrillator pad projects over the left chest and lateral left upper abdomen. Chest: The heart size and pulmonary vasculature is within normal limits. No pleural effusion, pneumothorax, or consolidation. The osseous structures are grossly intact. IMPRESSION: 1. No acute cardiopulmonary abnormality.
--- NOTE | 2025-03-21 12:39 | DVHINCON2 ---
Date Seen: Mar 21, [address] Morton Reason for Consultation SVT History of Present Illness 49-year-old female with past medical history of SVT on diltiazem, CAD s/p PCI to OM1 and mid distal circumflex with ROB in 2019, EF 55-60% with mild mitral regurgitation on echocardiogram (2019), bladder cancer under active treatment, CKD, prediabetes, and seizure disorder, currently admitted for sepsis. During hospitalization, she developed episodes of nonsustained SVT for which Cardiology was consulted. On evaluation today, patient is alert and oriented, resting comfortably, and denies chest pain, palpitations, dizziness, syncope, or shortness of breath. Telemetry currently shows normal sinus rhythm in the 90s. Lab review shows potassium 3.7 and magnesium of 1.6, potassium has been replaced and magnesium replacement is planned. Patient reports she is supposed to take magnesium at home but has not been consistent. She follows Cardiology infrequently and states she only saw a art history instructor once after her [place] in 2019, but she currently has a upcoming appointment scheduled for 04/02/2025. She continues to smoke tobacco and use marijuana. Past Medical History Stated in HPI Past Surgical History Denies Family History: Diabetes mellitus G8 MOTHER FH: myocardial infarction G8 FATHER Family History Reviewed, non-contributory to the management of this case. Social History Admits to tobacco use 456 cigarettes a day Admits to occasional use of marijuana Denies EtOH abuse Allergies: Coded Allergies: NO KNOWN ALLERGIES (Unverified , 06/16/19) Home Meds Active Scripts Ticagrelor Base (BRILINTA) 90 Mg Tab, 90 MG PO BID, #60 TAB Prov:MARINA PORTER MD 06/17/19 Atorvastatin Calcium (ATORVASTATIN CALCIUM) 20 Mg Tab, 40 MG PO HS, #30 TAB Prov:MARINA PORTER MD 06/17/19 Aspirin (Asa) 81 Mg Ch, 81 MG PO DAILY, #30 TAB.CHEW Prov:MARINA PORTER MD 06/17/19 Reported Medications Diltiazem Hcl (DILTIAZEM HCL ER) 240 Mg Cap, 120 CAP PO DAILY, #30 CAP 5 Refills 03/21/25 Current Medications Current Medications Medications (Trade) Dose Ordered Sig/Riley Route PRN Reason Start Time Stop Time Status Last Admin Sodium Chloride 1,000 ml @ 60 mls/hr [id number] IV 03/20/25 16:45 03/21/25 08:40 Acetaminophen/ Hydrocodone Bitart ([place] 5/325MG Tab) 1 tab Q4HP PRN PO MODERATE PAIN (4-6 PAIN SCALE) 03/20/25 16:45 03/20/25 23:36 Ondansetron HCl (Zofran) 4 mg Q4HP PRN IV NAUSEA / VOMITING 03/20/25 16:45 Enoxaparin Sodium (Lovenox) 40 mg DAILY SC 03/21/25 10:00 03/21/25 08:40 Acetaminophen (Tylenol Tablet) 650 mg Q6HP PRN PO PAIN SCALE 1-3 OR TEMP>100.4 03/20/25 16:45 Morphine Sulfate 2 mg Q4HPRN PRN IV SEVERE PAIN (7-10 PAIN SCALE) 03/20/25 17:00 03/21/25 08:41 Ceftriaxone Sodium 50 ml @ 100 mls/hr DAILY@09 IV 03/21/25 09:00 03/21/25 08:39 Metronidazole 100 ml @ 100 mls/hr Q8HR IV 03/20/25 22:00 03/21/25 05:48 Ondansetron HCl (Zofran) 4 mg Q6HPRN PRN IV NAUSEA / VOMITING 03/20/25 16:45 03/20/25 16:51 DC Adenosine (Adenosine) 3 mg ONCE STAT IV 03/21/25 10:46 03/21/25 10:49 DC Adenosine (Adenosine) 12 mg ONCE STAT IV 03/21/25 10:46 03/21/25 10:49 DC Metoprolol Tartrate (Lopressor Tablet) 25 mg BID PO 03/21/25 22:00 03/21/25 11:24 DC Diltiazem HCl (Cardizem ER Capsule) 120 mg DAILY PO 03/22/25 10:00 03/21/25 11:28 DC Diltiazem HCl (Cardizem ER Capsule) 120 mg DAILY PO 03/22/25 10:00 Magnesium Sulfate/ Dextrose 100 ml @ 100 mls/hr Q1HR IV 03/21/25 13:00 03/21/25 15:59 UNV Review of Systems Constitutional: No symptom reported Ears, Nose, & Throat: No symptom reported Eyes: No symptom reported Neurological: No symptoms reported Pulmonary/Respiratory: No symptom reported Cardiovascular: Supraventricular tachycardia Gastrointestinal: No symptom reported Genitourinary: No symptom reported Musculoskeletal: No symptom reported Skin: No symptom reported Psychiatric: No symptom reported Endocrine: No symptom reported Hematologic/Lymphatic: No symptom reported Vital Signs Vital Signs Date Time Temp Pulse Resp B/P (MAP) Pulse Ox O2 Delivery O2 Flow Rate FiO2 03/21/25 10:30 94 18 100/68 03/21/25 08:58 98.2 93 98.2 03/21/25 07:59 Room Air* 0 21 Physical Exam INITIAL VITAL SIGNS: Reviewed by me GENERAL: Alert and interactive. No acute distress. HEAD: Head is normocephalic and atraumatic. EYES: EOMI, PERRL. No scleral icterus. No conjunctival injection. ENT: Moist mucous membranes. NECK: Supple, No masses, Full range of motion. RESPIRATORY: No tachypnea. Clear breath sounds bilaterally. No wheezing, rales, rhonchi. CV: Regular rate and rhythm. No murmurs, rubs, or gallops. GI/: Active bowel sounds, soft, nondistended, nontender. No guarding. No rebound. No masses. No CVA tenderness. INTEGUMENTARY: Warm and dry. No obvious rashes. NEUROLOGIC: Alert and oriented. Face is symmetric. Speech is normal. Moves all extremities equally. Labs/Diagnostic Data Labs Test 03/21/25 11:55 03/21/25 07:50 03/20/25 18:55 Range/Units White Blood Count 10.9 #H 4.4-10.8 10^3/uL Red Blood Count 3.71 L 4.0-5.20 10^6/uL Hemoglobin 10.8 L 12.2-16.2 g/dL Hematocrit 32.2 #L 36.0-46.0 % Mean Corpuscular Volume 86.7 80.0-100.0 fL Mean Corpuscular Hemoglobin 29.2 28.0-32.0 pg Mean Corpuscular Hemoglobin Concent 33.7 32.0-36.0 g/dL Red Cell Distribution Width 15.9 H 11.8-14.3 % Platelet Count 155 140-450 10^3/uL Mean Platelet Volume 9.6 6.9-10.8 fL Neutrophils (%) (Auto) 89.7 H 37.0-80.0 % Lymphocytes (%) (Auto) 4.4 L 10.0-50.0 % Monocytes (%) (Auto) 5.6 0.0-12.0 % Eosinophils (%) (Auto) 0.1 0.0-7.0 % Basophils (%) (Auto) 0.2 0.0-2.0 % Neutrophils # (Auto) 9.7 H 1.6-8.6 10 ^3/uL Lymphocytes # (Auto) 0.5 0.4-5.4 10 ^3/uL Monocytes # (Auto) 0.6 0-1.3 10 ^3/uL Eosinophils # (Auto) 0 0-0.8 10 ^3/uL Basophils # (Auto) 0 0-0.2 10 ^3/uL Nucleated Red Blood Cells 0.0 % Phosphorus Level 1.9 L 2.4-5.1 mg/dL Magnesium Level 1.6 1.6-2.6 mg/dL Urine Color Yellow Yellow Urine Clarity Clear Clear Urine pH 6.0 5.0-9.0 Urine Specific [place] 1.014 1.001-1.035 Urine Protein 2+ H Negative Urine Ketones Trace Negative Urine Blood 1+ H Negative /uL Urine Nitrite Negative Negative Urine Bilirubin Negative Negative Urine Urobilinogen 3 H Negative mg/dL Urine Leukocyte Esterase Negative Negative /uL Urine RBC 1 0 - 4 /hpf Urine Microscopic WBC 2 0-5 /HPF Urine Squamous Epithelial Cells Few <5 /hpf Urine Bacteria Few H None Seen /hpf Urine Mucus Few None Seen Urine Glucose Normal Normal mg/dL Microbiology Date/Time Source Procedure Growth Status 03/20/25 13:52 Blood Blood Culture - Preliminary Resulted PROCEDURE(s): CXR1 - CHEST XRAY 1 VIEW REASON: sob ORDER NUMBER(s): [id number], ACCESSION NUMBER(s): [id number] EXAM: XY CHEST XRAY 1 VIEW CLINICAL HISTORY: sob TECHNIQUE: Single AP view of the chest WID: COMPARISON: XY CHEST PORTABLE on DOS: 03/20/25 FINDINGS: Lines and tubes: A defibrillator pad projects over the left chest and lateral left upper abdomen. Chest: The heart size and pulmonary vasculature is within normal limits. No pleural effusion, pneumothorax, or consolidation. The osseous structures are grossly intact. IMPRESSION: 1. No acute cardiopulmonary abnormality. Assessment 1. Nonsustained supraventricular tachycardia * Possibly triggered by sepsis, electrolytes imbalance, or noncompliance with magnesium * Currently hemodynamically stable and asymptomatic on diltiazem 2. CAD s/p PCI (2019) on Brilinta, mild MR, preserved EF 3. Sepsis- ongoing inpatient 4. Hypomagnesemia and borderline low potassium 5. Bladder cancer on active therapy 6. Prediabetes 7. Active smoker and marijuana use Plan/Recommendation (Dr. Dias ): * Repeat echocardiogram to evaluate changes in cardiac structure * Continue diltiazem for rate control * Magnesium oxide b.i.d. * Maintain electrolytes to keep potassium above four and magnesium above 2.2 * Continue telemetry monitoring for arrhythmia recurrent * Check tsh, a1c, lipid panel * Avoid triggers: Treat underlying sepsis per primary team, and correct electrolytes * Reinforced medication compliance including home magnesium supplement * Smoking cessation and marijuana use counseled This medical document was created using an electronic medical record system with voice recognition software and computerized dictation system. Although this document has been carefully reviewed, there might still be some phonetic and typographical errors. Occasional wrong-word or ``sound-alike substitutions may have occurred due to the inherent limitations of voice recognition software. These areas are purely typographical due to imperfections of the software programs and do not reflect any compromise in the patient's medical care. Please read the chart carefully and recognize, using context, where these substitutions have occurred. Plan discussed with: Patient Plan discussed with: Patient NYHA Physical activity limitations: NA Date of Service: Mar 21, 2025 Billing Provider: YOLY DIAS MD Cardiology Common Codes: CONSULT ONLY BENJAMIN GONZALEZ [employer]OMATION TEST ENGINEER Mar 21, 2025 12:39
[2025-03-21 12:58] LABS: Anion Gap 10 (5-15); BUN/Creatinine Ratio 11.7 (10.0-20.0); Blood Urea Nitrogen 9 mg/dL (9-23); Calcium 8.7 mg/dL (8.7-10.4); Carbon Dioxide 23 mmol/L (20-31); Total Protein 6.8 g/dL (5.7-8.2)
[2025-03-21 12:59] LABS: Albumin 3.7 g/dL (3.2-4.8); Bilirubin, Total 0.9 mg/dL (0.2-1.0)
[2025-03-21 13:00] LABS: Alanine Aminotransferase 49 U/L (7-40); Alkaline Phosphatase 167 U/L (46-116); Chloride 95 mmol/L (98-107); Glucose 107 mg/dL (74-106); Potassium 3.4 mmol/L (3.5-5.1); Sodium 128 mmol/L (136-145)
[2025-03-21 13:29] LABS: Cholesterol 137 mg/dL (< 200)
[2025-03-21 13:53] LABS: HDL Cholesterol < 5 mg/dL (40-59); Triglycerides 285 mg/dL (< 150)
[2025-03-21] MEDS: MAGNESIUM SULFATE 1GM/100ML 100 ML IV SCH (13:59)
[2025-03-21] MEDS: POTASSIUM CHL 20 Meq TABLET PO ONE (13:59)
--- NOTE | 2025-03-21 16:47 | DVHINCON2 ---
Date Seen: Mar 21, [address] Morton Reason for Consultation SVT History of Present Illness This is a 49-year-old female with a past medical history of SVT on diltiazem, CAD s/p PCI to OM1 and mid distal circumflex with ROB in 2019, EF 55-60% with mild mitral regurgitation on echocardiogram (2019), bladder cancer under active treatment, CKD, prediabetes, and seizure disorder, currently admitted for sepsis. During hospitalization, she developed episodes of nonsustained SVT for which Cardiology was consulted. On evaluation today, patient is alert and oriented, resting comfortably, and denies chest pain, palpitations, dizziness, syncope, or shortness of breath. Telemetry currently shows normal sinus rhythm in the 90s. Lab review shows potassium 3.7 and magnesium of 1.6, potassium has b een replaced and magnesium replacement is planned. Patient reports she is supposed to take magnesium at home but has not been consistent. She follows Cardiology infrequently and states she only saw a hospital fellow once after her NE in 2019, but she currently has a upcoming appointment scheduled for 04/02/2025 She continues to smoke tobacco and use marijuana. Past Medical History Stated in HPI Past Surgical History Denies Family History: Diabetes mellitus G8 MOTHER FH: myocardial infarction G8 FATHER Allergies: Coded Allergies: NO KNOWN ALLERGIES (Unverified , 06/16/19) Home Meds Active Scripts Ticagrelor Base (BRILINTA) 90 Mg Tab, 90 MG PO BID, #60 TAB Prov:MARINA PORTER MD 06/17/19 Atorvastatin Calcium (ATORVASTATIN CALCIUM) 20 Mg Tab, 40 MG PO HS, #30 TAB Prov:MARINA PORTER MD 06/17/19 Aspirin (Asa) 81 Mg Ch, 81 MG PO DAILY, #30 TAB.CHEW Prov:MARINA PORTER MD 06/17/19 Reported Medications Diltiazem Hcl (DILTIAZEM HCL ER) 240 Mg Cap, 120 CAP PO DAILY, #30 CAP 5 Refills 03/21/25 Current Medications Current Medications Medications (Trade) Dose Ordered Sig/Riley Route PRN Reason Start Time Stop Time Status Last Admin Sodium Chloride 1,000 ml @ 60 mls/hr [id number] IV 03/20/25 16:45 03/21/25 08:40 Acetaminophen/ Hydrocodone Bitart (Vance 5/325MG Tab) 1 tab Q4HP PRN PO MODERATE PAIN (4-6 PAIN SCALE) 03/20/25 16:45 03/20/25 23:36 Ondansetron HCl (Zofran) 4 mg Q4HP PRN IV NAUSEA / VOMITING 03/20/25 16:45 Enoxaparin Sodium (Lovenox) 40 mg DAILY SC 03/21/25 10:00 03/21/25 08:40 Acetaminophen (Tylenol Tablet) 650 mg Q6HP PRN PO PAIN SCALE 1-3 OR TEMP>100.4 03/20/25 16:45 Morphine Sulfate 2 mg Q4HPRN PRN IV SEVERE PAIN (7-10 PAIN SCALE) 03/20/25 17:00 03/21/25 08:41 Ceftriaxone Sodium 50 ml @ 100 mls/hr DAILY@09 IV 03/21/25 09:00 03/21/25 08:39 Metronidazole 100 ml @ 100 mls/hr Q8HR IV 03/20/25 22:00 03/21/25 13:59 Ondansetron HCl (Zofran) 4 mg Q6HPRN PRN IV NAUSEA / VOMITING 03/20/25 16:45 03/20/25 16:51 DC Adenosine (Adenosine) 3 mg ONCE STAT IV 03/21/25 10:46 03/21/25 10:49 DC Adenosine (Adenosine) 12 mg ONCE STAT IV 03/21/25 10:46 03/21/25 10:49 DC Metoprolol Tartrate (Lopressor Tablet) 25 mg BID PO 03/21/25 22:00 03/21/25 11:24 DC Diltiazem HCl (Cardizem ER Capsule) 120 mg DAILY PO 03/22/25 10:00 03/21/25 11:28 DC Diltiazem HCl (Cardizem ER Capsule) 120 mg DAILY PO 03/22/25 10:00 Magnesium Sulfate/ Dextrose 100 ml @ 100 mls/hr Q1HR IV 03/21/25 13:00 03/21/25 15:59 DC 03/21/25 16:22 Magnesium Oxide (Mag-Ox Tablet) 400 mg BID PO 03/21/25 22:00 Review of Systems Constitutional: No symptom reported Ears, Nose, & Throat: No symptom reported Eyes: No symptom reported Neurological: No symptoms reported Pulmonary/Respiratory: No symptom reported Cardiovascular: Supraventricular tachycardia Gastrointestinal: No symptom reported Genitourinary: No symptom reported Musculoskeletal: No symptom reported Skin: No symptom reported Psychiatric: No symptom reported Endocrine: No symptom reported Hematologic/Lymphatic: No symptom reported Vital Signs Vital Signs Date Time Temp Pulse Resp B/P (MAP) Pulse Ox O2 Delivery O2 Flow Rate FiO2 03/21/25 13:00 98.2 94 18 100/68 (79) 98 98.2 03/21/25 07:59 Room Air* 0 21 Physical Exam GENERAL: Alert and oriented x 3. No acute distress. EYES: PERRL, EOMI. Anicteric. HENT: Moist mucous membranes. LUNGS: Clear to auscultation bilaterally. CARDIOVASCULAR: Regular rate and rhythm. ABDOMEN: Soft, non-tender and non-distended. EXTREMITIES: No edema. NEUROLOGIC: No focal neurological deficits. SKIN: Warm, dry. Labs/Diagnostic Data Labs Test 03/21/25 11:55 03/21/25 11:50 03/21/25 07:50 03/20/25 18:55 Range/Units Sodium Level 128 L 136-145 mmol/L Potassium Level 3.4 L 3.5-5.1 mmol/L Chloride Level 95 L 98-107 mmol/L Carbon Dioxide Level 23 20-31 mmol/L Anion Gap 10 5-15 Blood Urea Nitrogen 9 9-23 mg/dL Creatinine 0.77 0.550-1.02 mg/dL Glomerular Filtration Rate Calc 95 >90 mL/min BUN/Creatinine Ratio 11.7 10.0-20.0 Serum Glucose 107 H 74-106 mg/dL Lactic Acid Level 2.0 0.4-2.0 mmol/L Calcium Level 8.7 8.7-10.4 mg/dL Total Bilirubin 0.9 0.2-1.0 mg/dL Aspartate Amino Transferase (AST) 117 H 13-40 U/L Alanine Aminotransferase (ALT) 49 H 7-40 U/L Alkaline Phosphatase 167 H 46-116 U/L Troponin I High Sensitivity 6 </=34 ng/L Total Protein 6.8 5.7-8.2 g/dL Albumin 3.7 3.2-4.8 g/dL Triglycerides Level 285 H < 150 mg/dL Cholesterol Level 137 < 200 mg/dL LDL Cholesterol 38 < 100 mg/dL HDL Cholesterol < 5 L 40-59 mg/dL Thyroid Stimulating Hormone (TSH) 2.02 0.55-4.78 uIU/mL White Blood Count 10.9 #H 4.4-10.8 10^3/uL Red Blood Count 3.71 L 4.0-5.20 10^6/uL Hemoglobin 10.8 L 12.2-16.2 g/dL Hematocrit 32.2 #L 36.0-46.0 % Mean Corpuscular Volume 86.7 80.0-100.0 fL Mean Corpuscular Hemoglobin 29.2 28.0-32.0 pg Mean Corpuscular Hemoglobin Concent 33.7 32.0-36.0 g/dL Red Cell Distribution Width 15.9 H 11.8-14.3 % Platelet Count 155 140-450 10^3/uL Mean Platelet Volume 9.6 6.9-10.8 fL Neutrophils (%) (Auto) 89.7 H 37.0-80.0 % Lymphocytes (%) (Auto) 4.4 L 10.0-50.0 % Monocytes (%) (Auto) 5.6 0.0-12.0 % Eosinophils (%) (Auto) 0.1 0.0-7.0 % Basophils (%) (Auto) 0.2 0.0-2.0 % Neutrophils # (Auto) 9.7 H 1.6-8.6 10 ^3/uL Lymphocytes # (Auto) 0.5 0.4-5.4 10 ^3/uL Monocytes # (Auto) 0.6 0-1.3 10 ^3/uL Eosinophils # (Auto) 0 0-0.8 10 ^3/uL Basophils # (Auto) 0 0-0.2 10 ^3/uL Nucleated Red Blood Cells 0.0 % Hemoglobin A1c 5.4 <5.7 % A1C Phosphorus Level 1.9 L 2.4-5.1 mg/dL Magnesium Level 1.6 1.6-2.6 mg/dL Urine Color Yellow Yellow Urine Clarity Clear Clear Urine pH 6.0 5.0-9.0 Urine Specific [place] 1.014 1.001-1.035 Urine Protein 2+ H Negative Urine Ketones Trace Negative Urine Blood 1+ H Negative /uL Urine Nitrite Negative Negative Urine Bilirubin Negative Negative Urine Urobilinogen 3 H Negative mg/dL Urine Leukocyte Esterase Negative Negative /uL Urine RBC 1 0 - 4 /hpf Urine Microscopic WBC 2 0-5 /HPF Urine Squamous Epithelial Cells Few <5 /hpf Urine Bacteria Few H None Seen /hpf Urine Mucus Few None Seen Urine Glucose Normal Normal mg/dL Microbiology Date/Time Source Procedure Growth Status 03/20/25 13:52 Blood Blood Culture - Preliminary Resulted Assessment Nonsustained supraventricular tachycardia. Possibly triggered by sepsis, electrolytes imbalance, or noncompliance with magnesium. Currently hemodynamically stable and asymptomatic on diltiazem. CAD s/p PCI (2019) on Brilinta, mild MR, preserved EF. Sepsis- ongoing inpatient. Hypomagnesemia and borderline low potassium. Bladder cancer on active therapy. Prediabetes. Active smoker and marijuana use. Plan/Recommendation I agree with your ongoing assessment and care of plan. Patient has been seen by Reshma Nugent NP on my behalf. We have discussed the plan with the patient. Repeat echocardiogram to evaluate changes in cardiac structure. Continue diltiazem for rate control. Magnesium oxide b.i.d.. Maintain electrolytes to keep potassium above four and magnesium above 2.2. Continue telemetry monitoring for arrhythmia recurrent. Check tsh, a1c, lipid panel. Avoid triggers: Treat underlying sepsis per primary team, and correct electrolytes. Reinforced medication compliance including home magnesium supplement. Smoking cessation and marijuana use counseled. Additional plan as per the hospital course. Plan discussed with: Patient NYHA Physical activity limitations: NA Date of Service: Mar 21, 2025 Billing Provider: YOLY PACHECO MD Cardiology Common Codes: [id number] INP/OBS CARE (High) Cardiology Consultation Codes: [id number] CONSULT <45MIN YOLY PACHECO MD Mar 21, 2025 16:47
[2025-03-21] MEDS: dilTIAZem 120MG ER CAP PO SCH (20:51)
[2025-03-21] MEDS: MAGNESIUM OXIDE 400 MG TAB PO SCH (21:27)
[2025-03-21] MEDS: BACLOFEN 10 MG TAB PO SCH (21:27)
[2025-03-21] MEDS ORDERED: METOPROLOL TARTRATE 25 MG TAB PO SCH (22:00)
[2025-03-22] VITALS (8 sets, daily range): BP systolic 93–109; BP diastolic 57–66; PULSE 69–117; RESP 17–20; TEMP 97.3–100; O2SAT 93–97
--- NOTE | 2025-03-22 02:30 | DVHSR ---
APPROVED REPORT EXAM: Two-dimensional and M-mode echocardiogram with Doppler and color Doppler. Blood Pressure: 159/110 mmHg INDICATION SVT RISK FACTORS Height: 5'8", Weight: 152 DIMENSIONS LVDd 4.5 (3.8-5.7cm) LA (2D) 3.6 (1.9-4.0cm) Aortic Root 3.5 (2.0-3.7cm) LVDs 3.1 (2.5-4.0cm) LA (MM) (1.9-4.0cm) Aortic Cusp Exc 1.6 (1.5-2.0cm) EF (%) 60.0 (55-70%) Rt. Atrium 3.3 (1.9-4.0cm) Asc. Aorta cm IVSd 0.8 (0.7-1.1cm) RV (D) 3.1 (1.8-2.4cm) PWd 0.8 (0.7-1.1cm) Mitral Valve Mitral Mitral Stenosis E wave 0.69m/s MV Mean GR. mmHg A wave 0.54m/s MV Peak GR. mmHg E/A ratio 1.3 2D MVA cm2 DECEL Time 278ms PRESS 1/2 Time ms Aortic Valve Aortic Valve Aortic Stenosis V1 1.14m/s AO Mean GR. 4mmHg V2 1.44m/s AO Peak GR. 8mmHg LVOT Diameter 1.8 (1.8-2.4cm) Doppler BRANDEN 2.01cm2 Conclusion LV EF IS 70% AND IS NORMAL NORMAL VALVES NORMAL RV FUNCTION NO EFFUSION
[2025-03-22 07:14] LABS: Hematocrit 27.8 % (36.0-46.0); Hemoglobin 9.4 g/dL (12.2-16.2); Mean Corpuscular Hemoglobin 29.5 pg (28.0-32.0); Mean Corpuscular Volume 87.4 fL (80.0-100.0); Nucleated Red Blood Cells % 0.1 %
[2025-03-22 07:32] LABS: Alanine Aminotransferase 34 U/L (7-40); Anion Gap 8 (5-15); BUN/Creatinine Ratio 8.2 (10.0-20.0); Calcium 8.8 mg/dL (8.7-10.4); Carbon Dioxide 25 mmol/L (20-31); Glucose 106 mg/dL (74-106); Potassium 3.6 mmol/L (3.5-5.1)
[2025-03-22 07:33] LABS: Total Protein 6.5 g/dL (5.7-8.2)
[2025-03-22 07:34] LABS: Albumin 3.5 g/dL (3.2-4.8); Bilirubin, Total 0.6 mg/dL (0.2-1.0)
[2025-03-22 07:40] LABS: Alkaline Phosphatase 160 U/L (46-116); Blood Urea Nitrogen 5 mg/dL (9-23); Chloride 98 mmol/L (98-107); Sodium 131 mmol/L (136-145)
[2025-03-22] MEDS ORDERED: dilTIAZem 120MG ER CAP PO SCH (10:00)
--- NOTE | 2025-03-22 11:30 | DVHINCON2 ---
Date of service: Mar 22, [address] Morton Reason for Consultation Hyponatremia History of Present Illness 49-year-old female with past medical history significant for RI, bladder cancer, and seizures is admitted for abdominal pain associated with nausea vomiting. On admission patient found to have low serum sodium nephrology is consulted for hyponatremia Past Medical History RI, bladder cancer, and seizures Past Surgical History PTCA, PCI Allergies: Coded Allergies: NO KNOWN ALLERGIES (Unverified , 06/16/19) Home Meds Active Scripts Ticagrelor Base (BRILINTA) 90 Mg Tab, 90 MG PO BID, #60 TAB Prov:MARINA PORTER MD 06/17/19 Atorvastatin Calcium (ATORVASTATIN CALCIUM) 20 Mg Tab, 40 MG PO HS, #30 TAB Prov:MARINA PORTER MD 06/17/19 Aspirin (Asa) 81 Mg Ch, 81 MG PO DAILY, #30 TAB.CHEW Prov:MARINA PORTER MD 06/17/19 Reported Medications Diltiazem Hcl (DILTIAZEM HCL ER) 240 Mg Cap, 120 CAP PO DAILY, #30 CAP 5 Refills 03/21/25 Current Medications Current Medications Medications (Trade) Dose Ordered Sig/Riley Route PRN Reason Start Time Stop Time Status Last Admin Metoprolol Tartrate (Lopressor Tablet) 25 mg BID PO 03/21/25 22:00 03/21/25 11:24 DC Diltiazem HCl (Cardizem ER Capsule) 120 mg DAILY PO 03/22/25 10:00 03/21/25 11:28 DC Diltiazem HCl (Cardizem ER Capsule) 120 mg DAILY PO 03/21/25 20:17 03/22/25 09:50 Magnesium Sulfate/ Dextrose 100 ml @ 100 mls/hr Q1HR IV 03/21/25 13:00 03/21/25 15:59 DC 03/21/25 16:22 Magnesium Oxide (Mag-Ox Tablet) 400 mg BID PO 03/21/25 22:00 03/22/25 09:48 Baclofen (Liorisal Tablet) 10 mg BID PO 03/21/25 22:00 03/22/25 09:55 Family History: Diabetes mellitus G8 MOTHER FH: myocardial infarction G8 FATHER Review of Systems All 12 item review of systems reviewed with the patient nonsignificant except what is mentioned in the history of present illness H&P Exam Vital Signs/I&O Vital Sign Date Time Temp Pulse Resp B/P (MAP) Pulse Ox O2 Delivery O2 Flow Rate FiO2 03/22/25 09:50 87 106/73 03/22/25 09:00 97.3 17 97 97.3 03/21/25 20:00 Room Air* 0 21 Intake and Output 03/21/25 03/22/25 19:00 07:00 Intake Total 718 ml 700 ml Balance 718 ml 700 ml Intake Oral 718 ml 500 ml IV Total 200 ml # Voids 3 1 # Bowel Movements 1 Physical Exam Patient lying comfortably in bed Lungs clear to auscultation bilaterally Cardiac exam regular rate and rhythm GI Soft nontender Nl Ext: no CCE Neuro: nonfocal Labs/Diagnostic Data Labs/Diagnostic Data Laboratory Tests Test 03/22/25 06:21 03/21/25 11:55 03/21/25 11:50 03/21/25 07:50 Range/Units White Blood Count 11.0 H 10.9 #H 4.4-10.8 10^3/uL Red Blood Count 3.18 L 3.71 L 4.0-5.20 10^6/uL Hemoglobin 9.4 L 10.8 L 12.2-16.2 g/dL Hematocrit 27.8 #L 32.2 #L 36.0-46.0 % Mean Corpuscular Volume 87.4 86.7 80.0-100.0 fL Mean Corpuscular Hemoglobin 29.5 29.2 28.0-32.0 pg Mean Corpuscular Hemoglobin Concent 33.7 33.7 32.0-36.0 g/dL Red Cell Distribution Width 15.8 H 15.9 H 11.8-14.3 % Platelet Count 159 155 140-450 10^3/uL Mean Platelet Volume 9.9 9.6 6.9-10.8 fL Neutrophils (%) (Auto) 76.4 89.7 H 37.0-80.0 % Lymphocytes (%) (Auto) 13.2 4.4 L 10.0-50.0 % Monocytes (%) (Auto) 9.9 5.6 0.0-12.0 % Eosinophils (%) (Auto) 0.2 0.1 0.0-7.0 % Basophils (%) (Auto) 0.3 0.2 0.0-2.0 % Neutrophils # (Auto) 8.4 9.7 H 1.6-8.6 10 ^3/uL Lymphocytes # (Auto) 1.5 0.5 0.4-5.4 10 ^3/uL Monocytes # (Auto) 1.1 0.6 0-1.3 10 ^3/uL Eosinophils # (Auto) 0 0 0-0.8 10 ^3/uL Basophils # (Auto) 0 0 0-0.2 10 ^3/uL Nucleated Red Blood Cells 0.1 0.0 % Sodium Level 131 L 128 L 129 L 136-145 mmol/L Potassium Level 3.6 3.4 L 3.7 3.5-5.1 mmol/L Chloride Level 98 95 L 94 L 98-107 mmol/L Carbon Dioxide Level 25 23 26 20-31 mmol/L Anion Gap 8 10 9 5-15 Blood Urea Nitrogen 5 L 9 9 9-23 mg/dL Creatinine 0.61 0.77 0.76 0.550-1.02 mg/dL Glomerular Filtration Rate Calc 110 95 97 >90 mL/min BUN/Creatinine Ratio 8.2 L 11.7 11.8 10.0-20.0 Serum Glucose 106 107 H 102 74-106 mg/dL Calcium Level 8.8 8.7 8.7 8.7-10.4 mg/dL Total Bilirubin 0.6 0.9 1.1 H 0.2-1.0 mg/dL Aspartate Amino Transferase (AST) 59 H 117 H 141 H 13-40 U/L Alanine Aminotransferase (ALT) 34 49 H 55 H 7-40 U/L Alkaline Phosphatase 160 H 167 H 169 H 46-116 U/L Total Protein 6.5 6.8 7.1 5.7-8.2 g/dL Albumin 3.5 3.7 3.8 3.2-4.8 g/dL Lactic Acid Level 2.0 0.4-2.0 mmol/L Creatine Kinase MB <1.0 0.0-5.3 ng/mL Troponin I High Sensitivity 6 </=34 ng/L Triglycerides Level 285 H < 150 mg/dL Cholesterol Level 137 < 200 mg/dL LDL Cholesterol 38 < 100 mg/dL HDL Cholesterol < 5 L 40-59 mg/dL Thyroid Stimulating Hormone (TSH) 2.02 0.55-4.78 uIU/mL Hemoglobin A1c 5.4 <5.7 % A1C Phosphorus Level 1.9 L 2.4-5.1 mg/dL Magnesium Level 1.6 1.6-2.6 mg/dL Test 03/20/25 18:55 03/20/25 13:38 Range/Units Urine Color Yellow Yellow Urine Clarity Clear Clear Urine pH 6.0 5.0-9.0 Urine Specific [place] 1.014 1.001-1.035 Urine Protein 2+ H Negative Urine Ketones Trace Negative Urine Blood 1+ H Negative /uL Urine Nitrite Negative Negative Urine Bilirubin Negative Negative Urine Urobilinogen 3 H Negative mg/dL Urine Leukocyte Esterase Negative Negative /uL Urine RBC 1 0 - 4 /hpf Urine Microscopic WBC 2 0-5 /HPF Urine Squamous Epithelial Cells Few <5 /hpf Urine Bacteria Few H None Seen /hpf Urine Mucus Few None Seen Urine Glucose Normal Normal mg/dL White Blood Count 14.7 H 4.4-10.8 10^3/uL Red Blood Count 4.14 4.0-5.20 10^6/uL Hemoglobin 12.2 12.2-16.2 g/dL Hematocrit 35.8 L 36.0-46.0 % Mean Corpuscular Volume 86.3 80.0-100.0 fL Mean Corpuscular Hemoglobin 29.4 28.0-32.0 pg Mean Corpuscular Hemoglobin Concent 34.0 32.0-36.0 g/dL Red Cell Distribution Width 15.8 H 11.8-14.3 % Platelet Count 210 140-450 10^3/uL Mean Platelet Volume 9.4 6.9-10.8 fL Neutrophils (%) (Auto) 94.7 H 37.0-80.0 % Lymphocytes (%) (Auto) 1.6 L 10.0-50.0 % Monocytes (%) (Auto) 3.4 0.0-12.0 % Eosinophils (%) (Auto) 0.0 0.0-7.0 % Basophils (%) (Auto) 0.3 0.0-2.0 % Neutrophils # (Auto) 13.9 H 1.6-8.6 10 ^3/uL Lymphocytes # (Auto) 0.2 L 0.4-5.4 10 ^3/uL Monocytes # (Auto) 0.5 0-1.3 10 ^3/uL Eosinophils # (Auto) 0 0-0.8 10 ^3/uL Basophils # (Auto) 0 0-0.2 10 ^3/uL Nucleated Red Blood Cells 0.0 % Sodium Level 126 L 136-145 mmol/L Potassium Level 3.5 3.5-5.1 mmol/L Chloride Level 94 L 98-107 mmol/L Carbon Dioxide Level 20 20-31 mmol/L Anion Gap 12 5-15 Blood Urea Nitrogen 11 9-23 mg/dL Creatinine 0.83 0.550-1.02 mg/dL Glomerular Filtration Rate Calc 87 >90 mL/min BUN/Creatinine Ratio 13.3 10.0-20.0 Serum Glucose 128 H 74-106 mg/dL Lactic Acid Level 1.7 0.4-2.0 mmol/L Calcium Level 9.2 8.7-10.4 mg/dL Assessment Hyponatremia likely due to dehydration Normal kidney function Status post SVT History of RI status post PTCA and PCI Abdominal pain Dropping hemoglobin Recommendations Closely monitor fluid and electrolytes Avoid nephrotoxic medications Strict I&Os Check urine electrolytes and protein excretion and urine osmolarity I agree with gentle IV hydration Avoid rapid correction of hyponatremia Repeat BNP We will continue to follow Patient seen and examined by myself. I discussed my plan of care with the patient and primary nurse at the bedside I would like to thank Dr. Morton for the consult, will follow up Plan discussed with: Patient BARRIE TOLBERT MD Mar 22, 2025 11:30
--- NOTE | 2025-03-22 12:12 | DVHPN2 ---
Reviewed: H&P Changes from previous H/P or p: No Changes General: Per HPI Objective Vitals Vital Signs Date Time Temp Pulse Resp B/P (MAP) Pulse Ox O2 Delivery O2 Flow Rate FiO2 03/22/25 09:50 87 106/73 03/22/25 09:00 97.3 17 97 97.3 03/21/25 20:00 Room Air* 0 21 Intake/Output Intake and Output 03/22/25 07:00 Intake Total 1418 ml Balance 1418 ml Intake Oral 1218 ml IV Total 200 ml # Voids 4 # Bowel Movements 1 Exam GEN: Healthy appearing, well-developed, NAD. HEENT: NC/AT; MMM. CV: RRR, no m/r/g. LUNGS: CTAB, no w/r/c. ABD: Soft, NT/ND, NBS, no masses or organomegaly. EXT: skin Warm, well perfused. no rashes. No clubbing, cyanosis, or edema. NEURO: Ambulating with no limitations. No focal deficits. Medications Current Medications Medications Dose Ordered Sig/Riley Route Start Time Stop Time Status Last Admin Dose Admin Sodium Chloride 1,000 ml @ 60 mls/hr [id number] IV 03/20/25 16:45 03/22/25 02:16 60 MLS/HR Acetaminophen/ Hydrocodone Bitart 1 tab Q4HP PRN PO 03/20/25 16:45 03/22/25 05:40 1 TAB Ondansetron HCl 4 mg Q4HP PRN IV 03/20/25 16:45 Enoxaparin Sodium 40 mg DAILY SC 03/21/25 10:00 03/22/25 09:48 40 MG Acetaminophen 650 mg Q6HP PRN PO 03/20/25 16:45 Morphine Sulfate 2 mg Q4HPRN PRN IV 03/20/25 17:00 03/21/25 08:41 2 MG Ceftriaxone Sodium 50 ml @ 100 mls/hr DAILY@09 IV 03/21/25 09:00 03/22/25 09:47 100 MLS/HR Metronidazole 100 ml @ 100 mls/hr Q8HR IV 03/20/25 22:00 03/22/25 05:42 100 MLS/HR Diltiazem HCl 120 mg DAILY PO 03/21/25 20:17 03/22/25 09:50 120 MG Magnesium Oxide 400 mg BID PO 03/21/25 22:00 03/22/25 09:48 400 MG Baclofen 10 mg BID PO 03/21/25 22:00 03/22/25 09:55 10 MG Laboratory Results Laboratory Tests 03/22/25 06:21 Chemistry Test 03/22/25 06:21 Albumin 3.5 g/dL (3.2-4.8) Calcium Level 8.8 mg/dL (8.7-10.4) Total Protein 6.5 g/dL (5.7-8.2) Cardiac Markers Test 03/22/25 06:21 B-Type Natriuretic Peptide Pending LFT Test 03/22/25 06:21 Alanine Aminotransferase (ALT) 34 U/L (7-40) Alkaline Phosphatase 160 U/L (46-116) H Aspartate Amino Transferase (AST) 59 U/L (13-40) H Total Bilirubin 0.6 mg/dL (0.2-1.0) Urinalysis Test 03/20/25 18:55 Urine Color Yellow (Yellow) Urine Clarity Clear (Clear) Urine pH 6.0 (5.0-9.0) Urine Specific [place] 1.014 (1.001-1.035) Urine Protein 2+ (Negative) H Urine Ketones Trace (Negative) Urine Blood 1+ /uL (Negative) H Urine Nitrite Negative (Negative) Urine Bilirubin Negative (Negative) Urine Urobilinogen 3 mg/dL (Negative) H Urine Leukocyte Esterase Negative /uL (Negative) Urine RBC 1 /hpf (0 - 4) Urine Microscopic WBC 2 /HPF (0-5) Urine Squamous Epithelial Cells Few /hpf (<5) Urine Bacteria Few /hpf (None Seen) H Urine Mucus Few (None Seen) Urine Glucose Normal mg/dL (Normal) Microbiology Microbiology Date/Time Source Procedure Growth Status 03/20/25 13:52 Blood Blood Culture - Preliminary Resulted Labs and/or images reviewed: Labs reviewed by me, Image(s) reviewed by me Assessment/Plan Assessment/Plan 49 y.o female with PMHx of CT, possible bladder cancer, and seizures, presents to the ED via EMS for a chief complaint of total body cramping x 3 days associated with nausea and vomiting x 1 day. Patient reports cramping is severe, states worse to the abdomen site and is accompanied by cold sweats today. No sick contacts. No fevers chills. Patient denies any fever, diarrhea, constipation, recent contact exposure, SOB or chest pain. EMS reports patient was orthostatic positive on scene and is back to normotensive upon ED arrival. 03/20: Patient presented for total body cramps after 1 day of severe nausea and vomiting. She has cold sweats, denies fevers. She also has hyponatremia , likely hypovolemic. given bolus and ctx/flagyl in ER. we will continue this for admission. will need maintenance fluids. 03/21: Had SVT overnight was given diltiazem ER 122 I's, her home doses diltiazem ER 120 once daily. She has gotten to SVT again this morning. She can versus herself to sinus tachycardia 100s. Giving LR 500 bolus, Gram-positive cause of cocci on blood blood culture, we will be blood cultures keep antibiotics ceftriaxone Flagyl. We will get triana labs CMP, lactic, Mag phos, troponin, CK,. Keeping crash guarded at bedside, and cardiology consult, continue daily diltiazem ER 120 mg daily, giving adenosine at bedside,. 03/22: No further NSVT, some sinus tach overnight. Continue diltiazem 120. Cardiology evaluated EF is 70% no wall motion abnormalities normal valves. Cardiology is giving magnesium oxide b.i.d.. We will repeat Mag phos levels at all today. Patient having diarrhea cramps are better continue baclofen 10 b.i.d.. For the diarrhea we will resuscitate with 500 LR today and get stool culture CBC. Otherwise continue present management. Diagnosis: Gastroenteritis, infectious etiology likely Hyponatremia, hypovolemic hypoosmolar likely History SVT CKD likely HFpEF possible Bladder cancer current, ongoing workup/treatment History of CT History of seizures? Plan: IV antibiotics Maintenance was Continue home medications Oxygen SpO2 goal more than 90 Prn pain meds Full liquid diet, advance as tolerated Prn Zofran for antiemetic Med surge Full code Plan discussed with: Patient My Orders Orders - PAUL LAIRD MD Procedure Category Date Status Time *Dr. [facility] CONS 03/21/25 Transmitted -[place] 17:26 Baclofen Tablet PHA 03/21/25 In Process (Liorisal Tablet) 22:00 Date of Service: Mar 22, 2025 Billing Provider: PAUL LAIRD MD Common Visit Codes: [id number] INP/OBS CARE(HIGH) PAUL LAIRD MD Mar 22, 2025 12:12
[2025-03-22] MEDS: LACTATED RINGER'S 500 ML IV ONE (12:30)
[2025-03-22 14:39] LABS: Urine Protein, UAD TRACE (Negative)
[2025-03-22 14:46] LABS: Protein, Urine 58.4 mg/dL (1-14)
--- NOTE | 2025-03-22 20:08 | DVHPN2 ---
Progress Note - Dictate Date Seen: Mar 22, 2025 Medical Necessity Reason Pt with a Central, PICC or Fol: No Subjective Patient was seen and evaluated in follow up. Patient complains of generalized discomfort. WBC 11, HGB 9.4, HCT 27.8, AST 59. Telemetry reviewed. vital signs Vital Sign Date Time Temp Pulse Resp B/P (MAP) Pulse Ox O2 Delivery O2 Flow Rate FiO2 03/22/25 17:00 98.2 85 17 109/57 (74) 95 98.2 03/22/25 08:00 Room Air* 0 21 Total Intake and Output 03/21/25 03/21/25 03/22/25 15:00 23:00 07:00 Intake Total 818 ml 600 ml Balance 818 ml 600 ml medications Current Medications Medications Dose Ordered Sig/Riley Route Start Time Stop Time Status Last Admin Dose Admin Sodium Chloride 1,000 ml @ 60 mls/hr [id number] IV 03/20/25 16:45 03/22/25 02:16 60 MLS/HR Acetaminophen/ Hydrocodone Bitart 1 tab Q4HP PRN PO 03/20/25 16:45 03/22/25 05:40 1 TAB Ondansetron HCl 4 mg Q4HP PRN IV 03/20/25 16:45 Enoxaparin Sodium 40 mg DAILY SC 03/21/25 10:00 03/22/25 09:48 40 MG Acetaminophen 650 mg Q6HP PRN PO 03/20/25 16:45 Morphine Sulfate 2 mg Q4HPRN PRN IV 03/20/25 17:00 03/21/25 08:41 2 MG Ceftriaxone Sodium 50 ml @ 100 mls/hr DAILY@09 IV 03/21/25 09:00 03/22/25 09:47 100 MLS/HR Metronidazole 100 ml @ 100 mls/hr Q8HR IV 03/20/25 22:00 03/22/25 14:25 100 MLS/HR Diltiazem HCl 120 mg DAILY PO 03/21/25 20:17 03/22/25 09:50 120 MG Magnesium Oxide 400 mg BID PO 03/21/25 22:00 03/22/25 09:48 400 MG Baclofen 10 mg BID PO 03/21/25 22:00 03/22/25 09:55 10 MG objective GENERAL: Alert and oriented x 3. No acute distress. EYES: PERRL, EOMI. Anicteric. HENT: Moist mucous membranes. LUNGS: Clear to auscultation bilaterally. CARDIOVASCULAR: Regular rate and rhythm. ABDOMEN: Soft, non-tender and non-distended. EXTREMITIES: No edema. NEUROLOGIC: No focal neurological deficits. SKIN: Warm, dry. laboratory and microbiology Laboratory Tests 03/22/25 06:21 Test 03/22/25 06:21 Range/Units Serum Glucose 106 74-106 mg/dL Problem List Nonsustained supraventricular tachycardia. Possibly triggered by sepsis, electrolytes imbalance, or noncompliance with magnesium. Currently hemodynamically stable and asymptomatic on diltiazem. CAD s/p PCI (2019) on Brilinta, mild MR, preserved EF. Sepsis- ongoing inpatient. Hypomagnesemia and borderline low potassium. Bladder cancer on active therapy. Prediabetes. Active smoker and marijuana use. Assessment/Plan Continued all current supportive medical care. [place] for pain management. IV antibiotics as ordered. Cardizem. DVT prophylactics. Additional plan as per the hospital course. Plan discussed with: Patient YOLY PACHECO MD Mar 22, 2025 18:25
[2025-03-23 05:00] VITALS: BP 113/72; PULSE 85; RESP 18; TEMP 98.6; O2SAT 94
[2025-03-23 07:11] LABS: Hematocrit 27.6 % (36.0-46.0); Hemoglobin 9.4 g/dL (12.2-16.2); Mean Corpuscular Hemoglobin 29.6 pg (28.0-32.0); Mean Corpuscular Volume 86.5 fL (80.0-100.0); Nucleated Red Blood Cells % 0.0 %
[2025-03-23 07:34] LABS: Alanine Aminotransferase 24 U/L (7-40); Albumin 3.3 g/dL (3.2-4.8); Anion Gap 6 (5-15); Carbon Dioxide 27 mmol/L (20-31); Chloride 100 mmol/L (98-107); Glucose 99 mg/dL (74-106); Total Protein 6.2 g/dL (5.7-8.2)
[2025-03-23 07:35] LABS: Bilirubin, Total 0.6 mg/dL (0.2-1.0)
[2025-03-23 07:41] LABS: Alkaline Phosphatase 178 U/L (46-116); BUN/Creatinine Ratio 8.6 (10.0-20.0); Blood Urea Nitrogen < 5 mg/dL (9-23); Calcium 8.6 mg/dL (8.7-10.4); Potassium 3.2 mmol/L (3.5-5.1); Sodium 133 mmol/L (136-145)
[2025-03-23 08:00] VITALS: PULSE 78; RESP 18; O2SAT 98
[2025-03-23 09:00] VITALS: BP 108/67; PULSE 77; RESP 17; TEMP 97.8; O2SAT 96
[2025-03-23] MEDS: POTASSIUM CHL 20 Meq TABLET PO ONE (10:16)
[2025-03-23 12:23] VITALS: BP 104/73; PULSE 74; RESP 17; TEMP 97.7; O2SAT 96
--- NOTE | 2025-03-23 12:25 | DVHPN2 ---
Progress Note Date Seen: Mar 23, 2025 Medical Necessity Reason Pt with a Central, PICC or Fol: No Subjective Review of Systems: Deferred Objective vital signs Vital Sign Date Time Temp Pulse Resp B/P (MAP) Pulse Ox O2 Delivery O2 Flow Rate FiO2 03/23/25 10:15 98 128/79 03/23/25 09:00 97.8 17 96 97.8 03/23/25 08:00 Room Air* 0 21 Total Intake and Output 03/22/25 03/22/25 03/23/25 15:00 23:00 07:00 Intake Total 50 ml 1630 ml 700 ml Balance 50 ml 1630 ml 700 ml medications Current Medications Medications Dose Ordered Sig/Riley Route Start Time Stop Time Status Last Admin Dose Admin Sodium Chloride 1,000 ml @ 60 mls/hr [id number] IV 03/20/25 16:45 03/23/25 08:34 60 MLS/HR Acetaminophen/ Hydrocodone Bitart 1 tab Q4HP PRN PO 03/20/25 16:45 03/23/25 10:19 1 TAB Ondansetron HCl 4 mg Q4HP PRN IV 03/20/25 16:45 Enoxaparin Sodium 40 mg DAILY SC 03/21/25 10:00 03/23/25 10:16 40 MG Acetaminophen 650 mg Q6HP PRN PO 03/20/25 16:45 Morphine Sulfate 2 mg Q4HPRN PRN IV 03/20/25 17:00 03/21/25 08:41 2 MG Ceftriaxone Sodium 50 ml @ 100 mls/hr DAILY@09 IV 03/21/25 09:00 03/23/25 08:47 100 MLS/HR Metronidazole 100 ml @ 100 mls/hr Q8HR IV 03/20/25 22:00 03/23/25 05:09 100 MLS/HR Diltiazem HCl 120 mg DAILY PO 03/21/25 20:17 03/23/25 10:15 120 MG Magnesium Oxide 400 mg BID PO 03/21/25 22:00 03/23/25 10:15 400 MG Baclofen 10 mg BID PO 03/21/25 22:00 03/23/25 10:15 10 MG Examination: GENERAL:Normal, CVS:Abnormal laboratory and microbiology Laboratory Tests 03/23/25 06:30 Test 03/23/25 06:30 Range/Units Serum Glucose 99 74-106 mg/dL Microbiology Date/Time Source Procedure Growth Status 03/22/25 12:20 Stool Stool Culture - Preliminary Resulted 03/22/25 12:20 Stool Shiga Toxin I & II Pending Resulted 03/21/25 13:40 Blood Blood Culture - Preliminary NO GROWTH AFTER 24 HOURS OF INCUBATION. Resulted Problem List/Assessment/Plan Problem List/Assessment/Plan Hyponatremia likely due to dehydration Normal kidney function Status post SVT History of [place] status post PTCA and PCI Abdominal pain Dropping hemoglobin obtain serum osm today replace potassium po , avoid excessive fluids rec PRBC for anemia Closely monitor fluid and electrolytes Avoid nephrotoxic medications Strict I&Os Avoid rapid correction of hyponatremia We will continue to follow Plan discussed with: Patient DANIEL BELLO MD Mar 23, 2025 12:25
[2025-03-23] MEDS: methylPREDNISolone SOD SUCC 40 MG/ML VL IV ONE (12:41)
[2025-03-23] MEDS: KETOROLAC TROMETH 30 MG/ML 1ML VIAL IV ONE (12:41)
[2025-03-23] MEDS ORDERED: AUG875T PO (15:47)
[2025-03-23] MEDS ORDERED: BACL10TA PO (15:47)
--- NOTE | 2025-03-23 15:50 | DVHDS2 ---
Discharge Summary Date of Admission Mar 20, 2025 at 16:43 Date of Discharge: Mar 23, 2025 Labs/Diagnostic Data: Laboratory Results Test 03/23/25 06:30 03/22/25 12:20 03/22/25 06:21 03/21/25 11:55 White Blood Count 9.9 10^3/uL (4.4-10.8) Red Blood Count 3.19 10^6/uL (4.0-5.20) Hemoglobin 9.4 g/dL (12.2-16.2) Hematocrit 27.6 % (36.0-46.0) Mean Corpuscular Volume 86.5 fL (80.0-100.0) Mean Corpuscular Hemoglobin 29.6 pg (28.0-32.0) Mean Corpuscular Hemoglobin Concent 34.2 g/dL (32.0-36.0) Red Cell Distribution Width 15.9 % (11.8-14.3) Platelet Count 260 10^3/uL (140-450) Mean Platelet Volume 9.5 fL (6.9-10.8) Neutrophils (%) (Auto) 77.2 % (37.0-80.0) Lymphocytes (%) (Auto) 14.5 % (10.0-50.0) Monocytes (%) (Auto) 7.5 % (0.0-12.0) Eosinophils (%) (Auto) 0.4 % (0.0-7.0) Basophils (%) (Auto) 0.4 % (0.0-2.0) Neutrophils # (Auto) 7.6 10 ^3/uL (1.6-8.6) Lymphocytes # (Auto) 1.4 10 ^3/uL (0.4-5.4) Monocytes # (Auto) 0.7 10 ^3/uL (0-1.3) Eosinophils # (Auto) 0 10 ^3/uL (0-0.8) Basophils # (Auto) 0 10 ^3/uL (0-0.2) Nucleated Red Blood Cells 0.0 % Sodium Level 133 mmol/L (136-145) Potassium Level 3.2 mmol/L (3.5-5.1) Chloride Level 100 mmol/L (98-107) Carbon Dioxide Level 27 mmol/L (20-31) Anion Gap 6 (5-15) Blood Urea Nitrogen < 5 mg/dL (9-23) Creatinine 0.58 mg/dL (0.550-1.02) Glomerular Filtration Rate Calc 112 mL/min (>90) BUN/Creatinine Ratio 8.6 (10.0-20.0) Serum Glucose 99 mg/dL (74-106) Serum Osmolality 272 mOsm/kg (278-298) Calcium Level 8.6 mg/dL (8.7-10.4) Total Bilirubin 0.6 mg/dL (0.2-1.0) Aspartate Amino Transferase (AST) 39 U/L (13-40) Alanine Aminotransferase (ALT) 24 U/L (7-40) Alkaline Phosphatase 178 U/L (46-116) Total Protein 6.2 g/dL (5.7-8.2) Albumin 3.3 g/dL (3.2-4.8) Urine Color Yellow (Yellow) Urine Clarity Clear (Clear) Urine pH 6.5 (5.0-9.0) Urine Specific [place] 1.009 (1.001-1.035) Urine Protein Trace (Negative) Urine Ketones Negative (Negative) Urine Blood Negative /uL (Negative) Urine Nitrite Negative (Negative) Urine Bilirubin Negative (Negative) Urine Urobilinogen Normal mg/dL (Negative) Urine Leukocyte Esterase Negative /uL (Negative) Urine RBC 2 /hpf (0 - 4) Urine Microscopic WBC < 1 /HPF (0-5) Urine Squamous Epithelial Cells Few /hpf (<5) Urine Bacteria Few /hpf (None Seen) Urine Osmolality 246 mOsm/kg Urine Creatinine 52.47 mg/dL (30.0-125.0) Urine Protein/Creatinine Ratio 1.11 Urine Sodium 29 mmol/L (40-220) Urine Glucose Normal mg/dL (Normal) Urine Total Protein 58.4 mg/dL (1-14) Stool for White Cells None seen B-Type Natriuretic Peptide 135.45 pg/mL (0-100) Lactic Acid Level 2.0 mmol/L (0.4-2.0) Creatine Kinase MB <1.0 ng/mL (0.0-5.3) Troponin I High Sensitivity 6 ng/L (</=34) Triglycerides Level 285 mg/dL (< 150) Cholesterol Level 137 mg/dL (< 200) LDL Cholesterol 38 mg/dL (< 100) HDL Cholesterol < 5 mg/dL (40-59) Test 03/21/25 11:50 03/21/25 07:50 03/20/25 18:55 Thyroid Stimulating Hormone (TSH) 2.02 uIU/mL (0.55-4.78) Hemoglobin A1c 5.4 % A1C (<5.7) Phosphorus Level 1.9 mg/dL (2.4-5.1) Magnesium Level 1.6 mg/dL (1.6-2.6) Urine Mucus Few (None Seen) Other Laboratory Tests 03/23/25 06:30 Brief Hx & Hospital Course: 49 y.o female with PMHx of [place], possible bladder cancer, and seizures, presents to the ED via EMS for a chief complaint of total body cramping x 3 days associated with nausea and vomiting x 1 day. Patient reports cramping is severe, states worse to the abdomen site and is accompanied by cold sweats today. No sick contacts. No fevers chills. Patient denies any fever, diarrhea, constipation, recent contact exposure, SOB or chest pain. EMS reports patient was orthostatic positive on scene and is back to normotensive upon ED arrival. 03/20: Patient presented for total body cramps after 1 day of severe nausea and vomiting. She has cold sweats, denies fevers. She also has hyponatremia , likely hypovolemic. given bolus and ctx/flagyl in ER. we will continue this for admission. will need maintenance fluids. 03/21: Had SVT overnight was given diltiazem ER 122 I's, her home doses diltiazem ER 120 once daily. She has gotten to SVT again this morning. She can versus herself to sinus tachycardia 100s. Giving LR 500 bolus, Gram-positive cause of cocci on blood blood culture, we will be blood cultures keep antibiotics ceftriaxone Flagyl. We will get triana labs CMP, lactic, Mag phos, troponin, CK,. Keeping crash guarded at bedside, and cardiology consult, continue daily diltiazem ER 120 mg daily, giving adenosine at bedside,. 03/22: No further NSVT, some sinus tach overnight. Continue diltiazem 120. Cardiology evaluated EF is 70% no wall motion abnormalities normal valves. Cardiology is giving magnesium oxide b.i.d.. We will repeat Mag phos levels at all today. Patient having diarrhea cramps are better continue baclofen 10 b.i.d.. For the diarrhea we will resuscitate with 500 LR today and get stool culture CBC. Otherwise continue present management. 03/23: Patient is stable to discharge. Patient will need outpatient follow up for SVT. Gastroenteritis we will need Augmentin 875 mg twice daily for 5 more days, please take OTC [id number] probiotics daily for 2 weeks. Take baclofen muscle relaxant 10 mg twice daily for 5 days, extra tablets to be used as prn up to 3 times daily. No further steroids. Resume normal diet. Follow up with Gynecology for metabolic symptoms. Follow up with PCP to review discharge into discuss OT exercises for shoulders. DC clinic 1 week. Diagnosis: Sepsis due to below Gastroenteritis, infectious etiology likely Shoulder pain bilateral, musculoskeletal likely Bacteremia, resolved Hyponatremia, hypovolemic hypoosmolar likely, acute on chronic SVT, stable on CCBs CKD likely HFpEF possible Bladder cancer current, ongoing workup/treatment History of [place] History of seizures? Menopause Anxiety discharge plan: - need outpatient follow up cardiology for SVT. -Gastroenteritis we will need Augmentin 875 mg twice daily for 5 more days, -please take OTC [id number] probiotics daily for 2 weeks. -Take baclofen muscle relaxant 10 mg twice daily for 5 days, extra tablets to be used as prn up to 3 times daily. -No further steroids. -continue other home medications -Resume normal diet. - Follow up with Gynecology for metabolic symptoms. -Follow up with PCP to review discharge into discuss OT exercises for shoulders. -DC clinic 1 week. Condition at Discharge: Fair Final Diagnosis/Problems List Sepsis due to below Gastroenteritis, infectious etiology likely Shoulder pain bilateral, musculoskeletal likely Bacteremia, resolved Hyponatremia, hypovolemic hypoosmolar likely, acute on chronic SVT, stable on CCBs CKD likely HFpEF possible Bladder cancer current, ongoing workup/treatment History of [place] History of seizures? Menopause Anxiety Discharge Disposition: Home Discharge Instruct/Medications Scheduled Aspirin (Asa), 81 MG PO DAILY Atorvastatin Calcium (Atorvastatin Calcium), 40 MG PO HS Diltiazem Hcl (Diltiazem Hcl Er), 120 CAP PO DAILY, (Reported) Ticagrelor Base (Brilinta), 90 MG PO BID Discharge Statement: "Patient was advised to return to the ER or call 911 if any headaches, dizziness, shortness of breath, chest pain, abdominal pain, bleeding, fevers, or worsening of medical condition. Patient was counseled about treatment plan, medications, possible side effects, patientverbalized understanding. All questions were answered to the best of my ability. This discharge took greater then 30 minutes in planning, reviewing documentation, counseling the patient, and discussing with other team members." ASSESSMENT ASSESSMENT Assessment Date of Service: Mar 23, 2025 Billing Provider: PAUL LAIRD MD Common Visit Codes: 38742-YUZ/OBS DISCH DAY >30min PAUL LAIRD MD Mar 23, 2025 15:50
[2025-03-23 15:54] VITALS: BP 128/79; PULSE 98; RESP 20; TEMP 98.2; O2SAT 98
[2025-03-23 16:30] VITALS: BP 108/75; PULSE 78; RESP 17; TEMP 98; O2SAT 98
--- NOTE | 2025-03-23 23:15 | DVHPN2 ---
Progress Note - Dictate Date Seen: Mar 23, 2025 Medical Necessity Reason Pt with a Central, PICC or Fol: No Subjective Patient was seen and evaluated in follow up. Patient has no new complaints at this time. Patient denies any cardiac symptoms. Patient is cardiac stable for discharge. Telemetry reviewed. vital signs Vital Sign Date Time Temp Pulse Resp B/P (MAP) Pulse Ox O2 Delivery O2 Flow Rate FiO2 03/23/25 16:30 98.0 78 17 108/75 (86) 98 98.0 03/23/25 08:00 Room Air* 0 21 Total Intake and Output 03/22/25 03/22/25 03/23/25 15:00 23:00 07:00 Intake Total 50 ml 1630 ml 700 ml Balance 50 ml 1630 ml 700 ml objective GENERAL: Alert and oriented x 3. No acute distress. EYES: PERRL, EOMI. Anicteric. HENT: Moist mucous membranes. LUNGS: Clear to auscultation bilaterally. CARDIOVASCULAR: Regular rate and rhythm. ABDOMEN: Soft, non-tender and non-distended. EXTREMITIES: No edema. NEUROLOGIC: No focal neurological deficits. SKIN: Warm, dry. laboratory and microbiology Laboratory Tests 03/23/25 06:30 Test 03/23/25 06:30 Range/Units Serum Glucose 99 74-106 mg/dL Problem List Nonsustained supraventricular tachycardia. Possibly triggered by sepsis, electrolytes imbalance, or noncompliance with magnesium. Currently hemodynamically stable and asymptomatic on diltiazem. CAD s/p PCI (2019) on Brilinta, mild MR, preserved EF. Sepsis- ongoing inpatient. Hypomagnesemia and borderline low potassium. Bladder cancer on active therapy. Prediabetes. Active smoker and marijuana use. Assessment/Plan Continued all current supportive medical care. [place] for pain management. IV antibiotics as ordered. Cardizem. DVT prophylactics. Additional plan as per the hospital course. Plan discussed with: Patient YOLY PACHECO MD Mar 23, 2025 23:15
== END 2025-03-23 17:37 | disposition home or self-care (01) | DRG 720 ==
LOC: ER 12:35 → EDBD 12:35 → OVERFLOW 16:43 → CENTRAL 22:10 → TELE-CENTR 03-21 11:23
PROVIDERS: ADMIT Student in an Organized Health Care Education/Training Program; ATTEND Student in an Organized Health Care Education/Training Program
DX: A41.9 Sepsis, unspecified organism (principal); I47.10 Supraventricular tachycardia, unspecified; I50.32 Chronic diastolic (congestive) heart failure; N18.9 Chronic kidney disease, unspecified; G40.909 Epilepsy, unspecified, not intractable, without status epilepticus; E87.1 Hypo-osmolality and hyponatremia; E86.0 Dehydration; A09 Infectious gastroenteritis and colitis, unspecified; E83.42 Hypomagnesemia; E86.1 Hypovolemia; I25.10 Atherosclerotic heart disease of native coronary artery without angina pectoris; R73.03 Prediabetes; F17.210 Nicotine dependence, cigarettes, uncomplicated; F41.9 Anxiety disorder, unspecified; I25.2 Old myocardial infarction; Z83.3 Family history of diabetes mellitus; Z98.61 Coronary angioplasty status; Z82.49 Family history of ischemic heart disease and other diseases of the circulatory system; Z79.82 Long term (current) use of aspirin; Z85.51 Personal history of malignant neoplasm of bladder
CPT/HCPCS: 36415; 71045; 74176; 80048; 80053; 80061; 81001; 82553; 82570; 83036; 83605; 83735; 83880; 83930; 83935; 84100; 84156; 84300; 84443; 84484; 85025; 85048; 87040; 87045; 87427; 93306; 96361; 96365; 96367; 99291; 99292; G0378; J0153; J1885; J3490